=== PATIENT | female | born 1995 | race Caucasian/White ===

== ENCOUNTER 2023-08-05 19:02 | Outpatient (REF) | payer OTHER, SELFPAY ==
[2023-08-09 19:07] LABS: Age Gdln ACOG Testing Note (.); HPV Aptima Negative (Negative); IGP, Aptima HPV, rfx 16/18,45 Note (.)
== END 2023-08-05 19:03 | disposition home or self-care (01) ==
LOC: LAB 19:02
PROVIDERS: Visit Provider Physician Assistant
DX: Z01.419 Encounter for gynecological examination (general) (routine) without abnormal findings (principal)
CPT/HCPCS: 87624; G0145

== ENCOUNTER 2023-08-19 10:03 | Outpatient (OUT) | payer OTHER, SELFPAY ==
--- NOTE | 2023-08-19 10:05 | MM_ITS ---
Patient Name: VJ ACEVES MR#: [id number] : 1995 Exam Date: 08/19/2023 Ordering Doctor: KIP Christiansen . RADIOLOGY REPORT PROCEDURE: MM TOMOSYNTHESIS DIAGNOSTIC BI, 08/19/2023, 10:04 US BREAST BI LIMITED, 08/19/2023, 10:46 COMPARISON: None. INDICATIONS: Calculator Name NCI Breast Cancer Risk Assessment Tool 5 Year Breast Cancer Risk Not Reported. Lifetime Breast Cancer Risk Not Reported. Personal Breast Cancer No Personal Ovarian Cancer No Treatments None Family Cancers None LOCATION: [facility] BREAST COMPOSITION: Heterogeneously dense,which may obscure small masses. FINDINGS: DIAGNOSTIC CATEGORY 2--BENIGN FINDING: Standard and spot compression views. Scattered benign-appearing calcifications are present. Scattered benign-appearing lymph nodes are present. RIGHT BREAST: [place] marker upper outer quadrant axillary tail. No mammographic or ultrasound abnormality. LEFT BREAST: Area of focal density on tomographic images only lower outer quadrant, anterior breast measuring 8.6 x 4.6 mm. Ultrasound demonstrates at the 5 o'clock position 4.4 cm from the nipple a 9.0 x 4.3 x 4.9 cm area of anechoic echogenicity with some low level echoes. No internal color flow. A cyst with minimal debris is favored. RECOMMENDATIONS: CLINICAL EVALUATION. PLEASE NOTE: A NORMAL MAMMOGRAM DOES NOT EXCLUDE THE POSSIBILITY OF BREAST CANCER. A CLINICALLY SUSPICIOUS PALPABLE LUMP SHOULD BE BIOPSIED. Dictated by: Lv Espinosa MD on 08/19/2023 at 13:34 Approved by: Lv Espinosa MD on 08/19/2023 at 13:38
== END 2023-08-19 10:04 | disposition home or self-care (01) ==
LOC: MAMMO 10:03
PROVIDERS: Visit Provider Physician Assistant
DX: N64.4 Mastodynia (principal); N63.11 Unspecified lump in the right breast, upper outer quadrant
CPT/HCPCS: 76642; 77066; G0279

== ENCOUNTER 2023-11-06 13:10 | Outpatient (OUT) | payer OTHER, SELFPAY ==
--- NOTE | 2023-11-06 13:12 | US_ITS ---
[place] [id number] Patient Name: VJ ACEVES MRN: [id number] date: 1995 Sex: F Assigned Patient Location: [facility] Current Patient Location: [facility] Accession/Order Number: [id number] Exam Date: 11/06/2023 13:12 Report Date: 11/06/2023 14:01 At the request of: DAYNE DAMON Procedure: US OB transvaginal EXAMINATION: US OB transvaginal HISTORY: MISSED MENSES COMPARISON: No relevant comparison available. FINDINGS: GESTATIONAL SAC: Present and normal appearing. YOLK SAC: Present and normal appearing. POLE: Present and normal appearing. CARDIAC: Present. UTERUS: Normal size and appearance. OVARIES: Right: Normal. Left: Normal. CERVIX: 3.6 cm in length and closed. CUL-DE-SAC: Normal. OTHER: None. AGE BY LMP: 8 weeks 4 days MARYAM BY LMP: 06/13/2024 AGE BY US CRL: 7 weeks 1 day MARYAM BY US CRL: 06/23/2024 US/US OB transvaginal IMPRESSION: 1. Single live intrauterine . Electronically authenticated by: LUZMA TRIPP Date: 11/06/2023 14:01
== END 2023-11-06 13:11 | disposition home or self-care (01) ==
LOC: NOMS 13:10
PROVIDERS: Visit Provider Obstetrics & Gynecology
DX: Z34.91 Encounter for supervision of normal pregnancy, unspecified, first trimester (principal); Z3A.00 Weeks of gestation of pregnancy not specified; N92.6 Irregular menstruation, unspecified
CPT/HCPCS: 76817

== ENCOUNTER 2023-12-05 11:21 | Outpatient (OUT) | payer OTHER, SELFPAY ==
[2023-12-05 11:48] LABS: Basophils Percent Auto 0.6 % (0.2-2.0); Eosinophils Percent Auto 0.6 % (0.9-7.0); Hematocrit 40.2 % (36.0-48.0); Hemoglobin 13.2 g/dL (12.0-16.0); Immature Granulocytes Abs Auto 0.03 10^3/uL (0.00-0.03); Immature Granulocytes Pct Auto 0.4 % (0.0-0.5); Lymphocytes Absolute Auto 1.6 10^3/uL (1.2-3.8); Lymphocytes Percent Auto 22.2 % (20.5-60.0); Mean Corpuscular HGB Conc 32.8 g/dL (29.9-35.2); Mean Corpuscular Hemoglobin 30.4 pg (26.7-34.0); Mean Corpuscular Volume 92.6 fL (81.0-99.0); Mean Platelet Volume 11.2 fL (9.5-13.5); Monocytes Absolute Auto 0.4 10^3/uL (0.3-0.8); Monocytes Percent Auto 5.8 % (1.7-12.0); Neutrophils Absolute Auto 4.9 10^3/uL (1.4-6.5); Neutrophils Percent Auto 70.4 % (43.0-75.0); Platelet Count 197 10^3/uL (150-450); Red Blood Count 4.34 10^6/uL (4.20-5.40); Red Cell Distribution Width 12.5 % (11.0-15.0)
[2023-12-05 11:58] LABS: Estimated Average Glucose 100 mg/dL; Glycohemoglobin A1C 5.1 % (4.5-6.2)
[2023-12-06 06:09] LABS: HBsAg Screen Negative (Negative); HCV Ab Non Reactive (Non Reactive); HIV Ab/p24 Ag Screen Non Reactive (Non Reactive); Rubella Antibodies, IgG <0.90 index (Immune >0.99)
[2023-12-06 12:08] LABS: Rapid Plasma Reagin, Quant Non Reactive titer (NonRea<1:1)
== END 2023-12-05 11:22 | disposition home or self-care (01) ==
LOC: LAB 11:21
PROVIDERS: Visit Provider Obstetrics & Gynecology
DX: N92.6 Irregular menstruation, unspecified (principal); Z36.0 Encounter for antenatal screening for chromosomal anomalies
CPT/HCPCS: 36415; 83036; 85025; 86592; 86762; 86803; 86850; 86900; 86901; 87086; 87340; 87389

== ENCOUNTER 2024-01-07 10:22 | Outpatient (OUT) | payer OTHER, SELFPAY ==
--- OUTSIDE RECORDS SUMMARY | 2024-01-07 10:45 | XMS_ITS | CCD ---
Author Organization [facility] Care Team Providers Care Order Filler Name Role Phone REQUEST, DR NONE LISTED Primary Care Unavaila fox DAMON, DR OSCAR Consulting Unavailable DR DAYNE DAMON Attending Unavailable NELSON, DR OSCAR Admitting Unavailable Agueda Nazia Unavailable DAYNE DAMON Attending Unavailable FRANKIE BECKER Attending Unavailable Medications Current Medications Medication Drug Class(es) Dates Sig (Normalized) Sig (Original) amoxicillin 500 mg oral capsule (1 source) Penicillin-class Antibacterial Start: 07-11-2023 take 1 capsule by mouth every eight hours Amoxicillin 500 MG 1 capsule Orally tid for 10 day(s) Jul, Active metFORMIN (2 sources) Biguanide Start: 07-03-2022 metFORMIN HCl Jul, Active venlafaxine (2 sources) Serotonin and Norepinephrine Reuptake Inhibitor Start: 07-03-2022 Venlafaxine HCl Jul, Active Completed/Discontinued Medications Medication Drug Class(es) Dates Sig (Normalized) Sig (Original) [id number] 200 actuat albuterol 0.09 mg/actuat metered dose inhaler (2 sources) beta2-Adrenergic Agonist Start: 07-03-2022 take 2 puff(s) by inhalation four times daily as needed Albuterol Sulfate HFA 108 (90 Base) MCG/ACT 2 puffs Inhalation 4 times a day prn Jul, Not-Taking azithromycin 250 mg oral tablet (2 sources) Macrolide Antimicrobial Start: 07-03-2022 Azithromycin 250 MG 2 tablet on the first day, then 1 tablet daily for 4 days Orally Once a day for 5 day(s) Jul, Not-Taking predniSONE 20 mg oral tablet (2 sources) Start: 07-03-2022 take 1 tablet by mouth every twelve hours predniSONE 20 MG 1 tablet Orally 2 times a day for 5 day(s) Jul, Not-Taking Problems Active Problems Problem Classification Problem Date Documented Date Episodic/Chronic Acute bronchitis (1 source) Acute bronchitis due to respiratory syncytial virus Episodic Immunizations and screening for infectious disease (1 source) Encounter for screening for human papillomavirus (HPV); Translations: [ENC SCREENING HUMAN PAPILLOMAVIRUS] Onset: 05-09-2022 Episodic Other lower respiratory disease (2 sources) Cough; Translations: [Cough] Episodic Other screening for suspected conditions (not mental disorders or infectious disease) (4 sources) Encounter for screening for malignant neoplasm of cervix; Translations: [ENC SCREENING MALIG NEOPLASM CERV] Onset: 05-07-2022 Episodic Otitis media and related conditions (1 source) Otitis media, unspecified, right ear Episodic Residual codes; unclassified (2 sources) Procedure related finding; Translations: [Encounter for cosmetic surgery] Episodic Past or Other Problems Problem Classification Problem Date Documented Da te Episodic/Chronic Unclassified (1 source) Cough R05.9 Results Test Name Value Interpretation Reference Range Facility COVID/FLU/RSV RT-PCRon 07-03 SARS-CoV-2 (COVID-19) RNA SHEKHAR+probe Ql (Unsp spec) Negative [facility] Other COVID/FLU/RSV RT-PCR Negative [facility] Other COVID/FLU/RSV RT-PCR Positive [facility] Other PAP ACOG PANEL 2: 21 to 29on 05-10-2022 . . [facility] Comment on above: Performed By: #### [id number] #### [facility] [address] [address] [address] Stewart Espinal Age Gdln ACOG Testing 21-29 Normal [facility] Comment on above: Performed By: #### [id number] #### [facility] [address] [address] [address] Stewart Espinal DIAGNOSIS: Comment [facility] Comment on above: Result Comment: NEGA TIVE FOR INTRAEPITHELIAL LESION OR MALIGNANCY. Performed By: #### [id number] #### [facility] [address] [address] [address] Stewart Espinal Methodology: Comment [facility] Comment on above: Result Comment: This liquid based ThinPrep(R) pap test was screened with the use of an image guided system. Performed By: #### [id number] #### [facility] [address] [place] [address] Dr. Stewart Espinal Note: Comment Normal [facility] Comment on above: Result Comment: The Pap smear is a screening test designed to aid in the detection of premalignant and malignant conditions of the uterine cervix. It is not a diagnostic procedure and should not be used as the sole means of detecting cervical cancer. Both false-positive and false-negative reports do occur. . Performed By: #### [id number] #### [facility] [address] [place] [address] Dr. Stewart Espinal Performed by: Comment Normal [facility] Comment on above: Result Comment: Amanda Lozano, Hog Scalder (ASCP) Performed By: #### [id number] #### [facility] [address] [place] [address] Dr. Stewart Espinal Reflex Criteria: Comment Normal [facility] Comment on above: Result Comment: The HPV DNA reflex criteria were not met with this specimen result therefore, no HPV testing was performed. . Performed By: #### [id number] #### [facility] [address] [place] [address] Dr. Stewart Espinal Specimen adequacy: Comment [facility] Comment on above: Result Comment: Sati sfactory for evaluation. Endocervical and/or squamous metaplastic cells (endocervical component) are present. Performed By: #### [id number] #### [facility] [address] [place] [address] Dr. Stewart Espinal Lab Reportson 08-07-2020 Lab Reports [id number] 0CD:127 Normal [facility] Provider Letter FTMCon 08-07 Provider Letter FT Iggy Pollack MD [address] [place] [phone] Re: TONNY ACEVES Date of : 1995 Thank you for your referral of Tonny Aceves who was seen on consultation on August 02, 2020, for Left breast abscess. I have enclosed my consultation notes for your review. I will happy to follow Tonny should her symptoms persist. Sincerely, Ino Toledo MD General Surgery Normal [facility] Lab Reportson 08-04-2020 Lab Reports [id number] 0CD:127 Normal [facility] Ambulatory Clinical Summaryo n 08-02-2020 Ambulatory Clinical Summary {[id number]}CD:[id number] Normal [facility] General Surgery Office/Clini c Noteon 08-02-2020 General Surgery Office/Clinic Note Chief Complaint breast abscess HPI Staff 1 year old female presents on consultation from Dr. Pollack for left breast abscess. Started with redness and warmth started roughly one week ago. Started unknown ATB on Friday without improved. Today area opened and drained green, non-odorous material. Has resolving infection of right breast. History of Present Illness 25 yo female, 5 weeks ; was breast feeding, stopped due to infections; but developed mastitis and right breast abscess 2 weeks ago, treated with Augmentin, also some mild swelling, pain under left breast; 1 week ago, after she was off the antibiotics, left breast began swelling, was red and painful, unable to be evaluated until Friday, placed on Ciprofloxacin; had spontaneous drainage this morning, continued pain; no fevers; only taking Ibuprofen for pain and it is not helping. Review of Systems PHQ Score Initial Depression Screen Score: 0 ROS - Provider Constitutional: no fever, no sweats, no weight loss. Eyes: no glasses, no blurred vision, no visual loss. ENMT: no dentures, no hoarseness, no swallowing difficulties, no hearing loss, no ear infection(s), no nose bleeds. Cardiovascular: normal blood pressure, no chest pain, regular heartbeat, no heart murmur. Respiratory: no shortness of breath, no cough, no asthma, no wheezing. Gastrointestinal: no nausea, no vomiting, no diarrhea, no constipation, no blood in stool, no change in bowel habits, no abdominal pain, no hepatitis. Genitourinary: no kidney stones, no urine infection, no dysuria. Musculoskeletal: no pain, no weakness. Skin: no changing moles, no rash, yes skin lumps. Neurologic: no seizures, no epilepsy, no headache. Psychiatric: no emotional or psychiatric problem. Heme/Lymph: no bleeding problems, no anemia, no blood clots, no transfusions. Allergy/Immunologic: no swollen lymph nodes/glands, no IV drug abuse. Other: Additional ROS info: Except as noted in the above Review of Systems and in the History of Present Illness, all other systems have been reviewed and are negative or noncontributory. Physical Exam Vitals & Measurements T: 37.9 ?C (Tympanic) HR: 120(Peripheral) RR: 16 BP: 126/82 HT: 162.5 cm HT: 162.5 cm WT: 83.4 kg WT: 83.4 kg BMI: 31.58 HEENT: normal conjunctiva, sclera clear, no scleral icterus, EOM intact, PERRLA. oral mucosa moist without lesions Neck: trachea midline , no mass, symmetric, no thyromegaly or nodules. no adenopathy Respiratory: lungs CTA, respirations non labored. Cardiovascular: regular rate and rhythm, no murmur, , no pedal edema or varicosities. Chest (Breasts): right breast with 1.5 cm open area from old abscess, no erthema or drainage; right breast with erythema; large left inferior abscess with skin peeling, 2 mm open area with thick purulent drainage; tender. Musculoskeletal: normalgait, digits and nails without infection, nodes, cyanosis, clubbing. Skin: no rashes, no lesions, no ulcers, no subcutaneous nodules, induration. Psychiatric/Neuro: oriented to time, place, person, judgement normal, affect anxious, insight intact, no focal deficits. Tests: review of old records completed, Discussed surgical options, risks, and possible complications with patient. Procedure left breast prepped and draped; anesthetized with 10 ml of 1% lidocaine with epinephrine; area of spontaneous drainage enlarged to 1 cm with # 11 blade; large amount of purulent material drained; cx obtained. ebl < 1ml. Assessment/Plan 1. Abscess of left breast associated with (O91.13: Abscess of breast associated with ) area drained/cultured under local anesthesia; sterile dressing applied; add Bactrim, continue Cipro; daily dressing changes; massage area in shower to get remaining purulent material out; [place] and Ibuprofen for pain; follow up Friday for wound check; call sooner if problems/questions. Ordered: acetaminophen-hydrocod one, 1 tab(s), Oral, q4hr for pain, 18 tab(s), Refill(s) 0, take with food or milk, [id number], 162.5, cm, 08/02/20 14:45:00 EST, Height/Length Dosing, 83.4, kg, 08/02/20 14:45:00 EST, Weight Dosing sulfamethoxazole-trime thoprim, 1 tab(s), Oral, BID for 10 day(s), 20 tab(s), Refill(s) 0, [id number], 162.5, cm, 08/02/20 14:45:00 EST, Height/Length Dosing, 83.4, kg, 08/02/20 14:45:00 EST, Weight Dosing I&D abscess simple single [id number] Wound Culture Acute postoperative pain (G89.18: Other acute postprocedural pain) see # 1 Ordered: acetaminophen-hydrocod one, 1 tab(s), Oral, q4hr for pain, 18 tab(s), Refill(s) 0, take with food or milk, [id number], 162.5, cm, 08/02/20 14:45:00 EST, Height/Length Dosing, 83.4, kg, 08/02/20 14:45:00 EST, Weight Dosing Follow-up No qualifying data available Problem List/Past Medical History Ongoing Abscess of left breast associated with Historical No qualifying data Procedure/Surgical History Tonsillectomy. Medications Bacitracin top 500 units/g Oint TUBE (15 gram) Bactrim DS 800 mg-160 mg Tab, 1 tab(s), Oral, BID ciprofloxacin 500 mg Tab [place] 325 mg-5 mg oral tablet, 1 tab(s), Oral, q4hr, PRN Allergies No Known Allergies No Known Medication Allergies Social History Alcohol - Denies Alcohol Use, 08/02/2020 Substance Abuse - Denies Substance Abuse, 08/02/2020 Tobacco Former smoker, quit more than 30 days ago Tobacco Use:., 08/02/2020 Family History Family history is negative Normal [facility] Comment on above: Result Comment: Elec tronically Signed By: TONJA CUBA, Ino Atkinson\Date and Time Signed: 08/02/20 15:43 EST Patient Educationon 08-02-20 20 Patient Education Family Medicine Abscess An abscess is an infected area that contains a collection of pus and debris.?It can occur in almost any part of the body. An abscess is also known as a furuncle or boil. CAUSES An abscess occurs when tissue gets infected. This can occur from blockage of oil or sweat glands, infection of hair follicles, or a minor injury to the skin. As the body tries to fight the infection, pus collects in the area and creates pressure under the skin. This pressure causes pain. People with weakened immune systems have difficulty fighting infections and get certain abscesses more often. SYMPTOMS Usually an abscess develops on the skin and becomes a painful mass that is red, warm, and tender. If the abscess forms under the skin, you may feel a moveable soft area under the skin. Some abscesses break open (rupture ) on their own, but most will continue to get worse without care. The infection can spread deeper into the body and eventually into the bloodstream, causing you to feel ill. DIAGNOSIS Your caregiver will take your medical history and perform a physical exam. A sample of fluid may also be taken from the abscess to determine what is causing your infection. TREATMENT Your caregiver may prescribe antibiotic medicines to fight the infection. However, taking antibiotics alone usually does not cure an abscess. Your caregiver may need to make a small cut (incision ) in the abscess to drain the pus. In some cases, gauze is packed into the abscess to reduce pain and to continue draining the area. HOME CARE INSTRUCTIONS ? Only take ivcv-hos-hpwneun or prescription medicines for pain, discomfort, or fever as directed by your caregiver. ? If you were prescribed antibiotics, take them as directed. Finish them even if you start to feel better. ? If gauze is used, follow your caregiver's directions for changing the gauze. ? To avoid spreading the infection: ? Keep your draining abscess covered with a bandage. ? Wash your hands well. ? Do not share personal care items, towels, or whirlpools with others. ? Avoid skin contact with others. ? Keep your skin and clothes clean around the abscess. ? Keep all follow-up appointments as directed by your caregiver. SEEK MEDICAL CARE IF: ? You have increased pain, swelling, redness, fluid drainage, or bleeding. ? You have muscle aches, chills, or a general ill feeling. ? You have a fever. MAKE SURE YOU: ? Understand these instructions. ? Will watch your condition. ? Will get help right away if you are not doing well or get worse. Document Released: 05/28/2006 Document Revised: 02/16/2013 Document Reviewed: 10/30/2012 ExitCare? Patient Information ?2013 [employer]. [facility] Vital Signs Date Time Vital Sign Value Performing Clinician Facility 07-11-2023 11:20-0500 Body height 165.1 cm Nazia Agueda Other [facility] Other 07-11-2023 11:20-0500 Body mass index (BMI) [Ratio] 34.88 kg/m2 Nazia Agueda Other [facility] Other 07-11-2023 11:20-0500 Body temperature 98.6 [degF] Nazia Agueda Other [facility] Other 07-11-2023 11:20-0500 Body weight 95.07 kg Nazia Agueda Other [facility] Other 07-11-2023 11:20-0500 Diastolic blood pressure 71 mm[Hg] Nazia Agueda Other [facility] Other 07-11-2023 11:20-0500 Respiratory rate 18 /min Nazia Agueda Other [facility] Other 07-11-2023 11:20-0500 SaO2% (BldA) [Mass fraction] 99 % Nazia Agueda Other [facility] Other 07-11-2023 11:20-0500 Systolic blood pressure 97 mm[Hg] Nazia Romeo Other [facility] Other 07-03-2022 13:25-0400 Body height 165.1 cm Nazia Romeo Other [facility] Other 07-03-2022 13:25-0400 Body mass index (BMI) [Ratio] 31.61 kg/m2 Nazia Romeo Other [facility] Other 07-03-2022 13:25-0400 Body temperature 100.4 [degF] Nazia Romeo Other [facility] Other 07-03-2022 13:25-0400 Body weight 86.18 kg Nazia Romeo Other [facility] Other 07-03-2022 13:25-0400 Respiratory rate 18 /min Nazia Romeo Other [facility] Other 07-03-2022 13:25-0400 SaO2% (BldA) [Mass fraction] 96 % Nazia Romeo Other [facility] Other Encounters Encounter Date Encounter Type Care Provider Facility Start: 12-09-2023 End: 12-09-2023 ambulatory DAYNE NELSON Not Available Start: 11-06-2023 End: 11-06-2023 ambulatory DAYNE NELSON Not Available Start: 08-05-2023 End: 08-05-2023 ambulatory FRANKIE EUGENIO Not Available Start: 07-11-2023 End: 07-11-2023 ambulatory Nazia Chimond Other [facility] Other Start: 07-11-2023 Office outpatient vi sit 15 minutes Nazia Agueda [facility] Start: 07-03-2022 End: 07-03-2022 ambulatory Nazia Romeo Other [facility] Other Start: 07-03-2022 Office outpatient vi sit 15 minutes Nazia Agueda [facility] Start: 05-07-2022 End: 05-07-[address] NONE LISTED REQUEST Facility: Payers Date Payer Category Payer Unknown [id number] 1995 Unknown [id number] 1995 Unknown [id number] 1995 Unknown [id number] 1961 Unknown [id number] Social History Date Type Detail Facility Unknown if ever smoked [facility] Other Sex Assigned At Sex Assigned At Bir th [facility] Other Evaluation note 07-11-2023 Note Date & Type Note Facility 07-11-2023 Evaluation note Encounter Date Diagnosis Assessment Notes Jul, Right otitis media, unspecified otitis media type (ICD-10 - H66.91) Middle ear infection: adult home care material was printed Drink plenty fluids, get plenty of rest. Take the amoxicillin as prescribed until gone. Take Tylenol or Motrin as needed for aches pains or fevers. Follow-up with your family physician if no improvement in 2 to 3 days. May return to work on Friday [facility] Other Evaluation note 07-03-2022 Note Date & Type Note Facility 07-03-2022 Evaluation note Encounter Date Diagnosis Assessment Notes Jul, Cough (ICD-10 - R05.9) Jul, RSV bronchitis (ICD-10 - J20.5) Acute bronchitis home care material was printed Drink plenty fluids, get plenty of rest. Take the azithromycin and prednisone as prescribed until gone. Use the albuterol inhaler as prescribed for cough or shortness of breath. Take Tylenol or Motrin for aches pains or fevers. Follow-up with your family physician if no improvement in 2 to 3 days. [facility] Other History general Narrative - Reported Note Date & Type Note Facility History general Narrative - Reported Type Surgical History tonsillectomy Surgical History wisdom teeth Hospitalization History see above [facility] Other Summary Purpose Family History No Family History Records FoundNo Family History Records FoundNo Family History Records Found Advance Directives No Advanced Directives Records FoundNo Advanced Directives Records FoundNo Advanced Directives Records Found Additional Source Comments INFORMATION SOURCE (unrecogn ized section and content) DATE CREATED AUTHOR 08/30/2020 [place] [employer] [facility] DATE CREATED AUTHOR AUTHOR'S ORGANIZ ATION 05/11/2022 [facility] DATE CREATED AUTHOR AUTHOR'S ORGANIZ ATION 12/10/2023 [facility] EPIC REASON FOR VISIT (unrecogniz ed section and content) SORE THROAT CONGESTION COUGH CONGESTION, COUGH, BODY ACHES FOR RECORDS PERTAINING TO PATIENTS WHO ARE OR HAVE BEEN ENROLLED IN A CHEMICAL DEPENDENCY/SUBSTANCEABUSE PROGRAM, SOME INFORMATION MAY BE OMITTED. This clinical summary was aggregated from multiple sources. Caution should be exercised in using it in the provision of clinical care. This summary normalizes information from multiple sources, and as a consequence, information in this document may materially change the coding, format and clinical context of patient data. In addition, data may be omitted in some cases. CLINICAL DECISIONS SHOULD BE BASED ON THE PRIMARY CLINICAL RECORDS. [employer] provides no warranty or guarantee of the accuracy or completeness of information in this document.
[2024-01-09 02:07] LABS: AFP Value 21.8 ng/mL (.); Gestat. Age Based On Ultrasound (.); Insulin Dep Diabetes No (.); Maternal Age At EDD 30.9 yr (.); OSBR Risk 1 IN 10000 (.); Results Report (.)
== END 2024-01-07 10:23 | disposition home or self-care (01) ==
LOC: LAB 10:24
PROVIDERS: Visit Provider Obstetrics & Gynecology
DX: Z34.92 Encounter for supervision of normal pregnancy, unspecified, second trimester (principal); Z3A.16 16 weeks gestation of pregnancy
CPT/HCPCS: 36415; 82105

== ENCOUNTER 2024-02-05 08:21 | Outpatient (OUT) | payer OTHER, SELFPAY ==
--- NOTE | 2024-02-05 08:25 | US_ITS ---
[address] [address] Patient Name: VJ ACEVES MRN: [id number] date: 1995 Sex: F Assigned Patient Location: [facility] Current Patient Location: [facility] Accession/Order Number: [id number] Exam Date: 02/05/2024 08:25 Report Date: 02/05/2024 10:38 At the request of: DAYNE DAMON Procedure: US OB anatomy EXAMINATION: US OB anatomy, US OB cervical length HISTORY: ANATOMY COMPARISON: Ultrasound OB transvaginal 11/06/2023 TECHNIQUE: Transabdominal sonographic examination was performed for obstetrical and evaluation. FINDINGS: Number: 1 Heart Rate: 145.0 bpm H.B. /min Amniotic Fluid Volume: Subjectively normal Placental Location: POSTERIOR with lower margin 2.6 cm from os Cervix Length: 4.4 cm, closed. ANATOMY: Normal Structures -cerebellum, choroid plexus, cisterna magna, lateral cerebral ventricles, orbits, midline falx, hard palate, four-chamber heart, RVOT, LVOT, stomach, kidneys, bladder, umbilical cord insertion into abdomen, three-vessel cord, cervical spine, thoracic spine, lumbar spine, sacral spine, right upper extremity, left upper extremity, right lower extremity, left lower extremity. SUBOPTIMALLY SEEN: None ABNORMALITIES: None BIOMETRY: BPD: 4.5 cm 19 weeks 5 days HC: 17.8 cm 20 weeks 2 days AC: 15.4 cm 20 weeks 4 days FL: 3.5 cm 21 weeks 1 days EFW:372.6 grams; 78% FL/AC: 22.8 FL/BPD: 77.7 HC/AC: 1.2 GESTATIONAL AGE: Age by EDC: 20 weeks 1 days MARYAM by EDC: 06/23/2024 Age by current US: 20 weeks 3 days MARYAM by current US: 06/21/2024 US/US OB anatomy IMPRESSION: 1. Single live intrauterine with growth detailed above. Electronically authenticated by: LUZMA TRIPP Date: 02/05/2024 10:38
--- NOTE | 2024-02-05 08:25 | US_ITS ---
[address] [address] Patient Name: VJ ACEVES MRN: [id number] date: 1995 Sex: F Assigned Patient Location: [facility] Current Patient Location: [facility] Accession/Order Number: [id number] Exam Date: 02/05/2024 08:25 Report Date: 02/05/2024 10:38 At the request of: DAYNE DAMON Procedure: US OB cervical length EXAMINATION: US OB anatomy, US OB cervical length HISTORY: ANATOMY COMPARISON: Ultrasound OB transvaginal 11/06/2023 TECHNIQUE: Transabdominal sonographic examination was performed for obstetrical and evaluation. FINDINGS: Number: 1 Heart Rate: 145.0 bpm H.B. /min Amniotic Fluid Volume: Subjectively normal Placental Location: POSTERIOR with lower margin 2.6 cm from os Cervix Length: 4.4 cm, closed. ANATOMY: Normal Structures -cerebellum, choroid plexus, cisterna magna, lateral cerebral ventricles, orbits, midline falx, hard palate, four-chamber heart, RVOT, LVOT, stomach, kidneys, bladder, umbilical cord insertion into abdomen, three-vessel cord, cervical spine, thoracic spine, lumbar spine, sacral spine, right upper extremity, left upper extremity, right lower extremity, left lower extremity. SUBOPTIMALLY SEEN: None ABNORMALITIES: None BIOMETRY: BPD: 4.5 cm 19 weeks 5 days HC: 17.8 cm 20 weeks 2 days AC: 15.4 cm 20 weeks 4 days FL: 3.5 cm 21 weeks 1 days EFW:372.6 grams; 78% FL/AC: 22.8 FL/BPD: 77.7 HC/AC: 1.2 GESTATIONAL AGE: Age by EDC: 20 weeks 1 days MARYAM by EDC: 06/23/2024 Age by current US: 20 weeks 3 days MARYAM by current US: 06/21/2024 US/US OB cervical length IMPRESSION: 1. Single live intrauterine with growth detailed above. Electronically authenticated by: LUZMA TRIPP Date: 02/05/2024 10:38
--- OUTSIDE RECORDS SUMMARY | 2024-02-05 08:26 | XMS_ITS ---
Patient Summarization (C-CDA 2.1 CCD) Created on: February 05, 2024 TONNY ACEVES : 1995 Sex: Female Author Organization Sample organization Care Team Providers Care Medical Records Analyst Name Role Phone REQUEST, DR NONE LISTED Primary Care Unavaila fox DAMON, DR OSCAR Consulting Unavailable NELSON, DR OSCAR Attending Unavailable NELSON, DR OSCAR Admitting Nazia Ferguson Unavailable DAYNE DAMON Attending Unavailable FRANKIE BECKER Attending Unavailable FRANKIE BECKER Attending Unavailable Encounters Encounter Date Encounter Type Care Provider Facility Start: 01-07-2024 End: 01-07-2024 ambulatory FRANKIE BECKER Not Available Start: 12-09-2023 End: 12-09-2023 ambulatory DAYNE NELSON Not Available Start: 11-06-2023 End: 11-06-2023 ambulatory DAYNE NELSON Not Available Start: 08-05-2023 End: 08-05-2023 ambulatory FRANKIE BECKER Not Available Start: 07-11-2023 End: 07-11-2023 ambulatory Nazia Romeo Other [employer] Other Start: 07-11-2023 Office outpatient vi sit 15 minutes Nazia Romeo [facility] Start: 07-03-2022 End: 07-03-2022 ambulatory Nazia Romeo Other [employer] Other Start: 07-03-2022 Office outpatient vi sit 15 minutes Nazia Romeo [facility] Start: 05-07-2022 End: 05-07-[address] TORO LISTED REQUEST Facility: Medications Current Medications Medication Drug Class(es) Dates [...] Drug Class(es) Dates Sig (Normalized) Sig (Original) [id number] 200 actuat albuterol 0.09 mg/actuat metered dose [...] a day for 5 day(s) Jul, Not-Taking Payers Date Payer Category Payer Unknown [id number] 2.16.84 [id number] 1995 Unknown [id number] 2.16.84 [id number] 1995 Unknown [id number] 2.16.84 [id number] 1993 Unknown [id number] 2.16.84 [id number] 1993 Unknown [id number] 1959 Unknown [id number] Problems Active Problems Problem Classification Problem Date [...] (COVID-19) RNA SHEKHAR+probe Ql (Unsp spec) Negative [employer] [facility] [employer] Other COVID/FLU/RSV RT-PCR Negative [employer] [facility] [employer] Other COVID/FLU/RSV RT-PCR Positive [employer] [facility] [employer] Other PAP ACOG PANEL 2: 21 to 29on 05-10-[address] [facility] Comment on above: Performed By: #### [id number] #### [facility] [address] [place] [address] Dr. Stewart Espinal Age Gdln ACOG Testing 21-29 [facility] Comment on above: Performed By: #### [id number] #### [facility] [address] [address] [address] Stewart Espinal DIAGNOSIS: Comment [facility] Comment on above: Result Comment: NEGA TIVE FOR INTRAEPITHELIAL LESION OR MALIGNANCY. Performed By: #### [id number] #### [facility] [address] [address] [address] Stewart Espinal Methodology: Comment [facility] Comment on above: Result Comment: This liquid based ThinPrep(R) pap test was screened with the use of an image guided system. Performed By: #### 4 [id number] #### [facility] [address] [place] [address] Dr. Stewart Espinal Note: Comment Normal [facility] Comment on above: Result Comment: The Pap smear is a screening test designed to aid in the detection of premalignant and malignant conditions of the uterine cervix. It is not a diagnostic procedure and should not be used as the sole means of detecting cervical cancer. Both false-positive and false-negative reports do occur. . Performed By: #### [id number] #### [facility] [address] [place] [address] Dr. Stewart Espinal Performed by: Comment Normal [facility] Comment on above: Result Comment: Amanda Lozano, Fitness Floor Attendant (ASCP) Performed By: #### 4 [id number] #### [facility] [address] [place] [address] Dr. Stewart Espinal Reflex Criteria: Comment Normal [facility] Comment on above: Result Comment: The HPV DNA reflex criteria were not met with this specimen result therefore, no HPV testing was performed. . Performed By: #### [id number] #### [facility] [address] [place] [address] Dr. Stewart Espinal Specimen adequacy: Comment [facility] Comment on above: Result Comment: Sati sfactory for evaluation. Endocervical and/or squamous metaplastic cells (endocervical component) are present. Performed By: #### 4 [id number] #### [facility] [address] [place] [address] Dr. Stewart Espinal Lab Reportson 08-07-2020 Lab Reports [id number] 0CD:127 Normal [facility] Provider Letter FTon 08-07 Provider Letter [facility] Iggy Pollack MD [address] [place] [phone] Re: TONNY ACEVES Date of : 1995 Thank you for your referral of Tonny Aceves who was seen on consultation on August 02, 2020, for Left breast abscess. I have enclosed my consultation notes for your review. I will happy to follow Tonny should her symptoms persist. Sincerely, Ino Toledo MD General Surgery Normal [facility] Lab Reportson 08-04-2020 Lab Reports [id number] 0CD:127 Normal [facility] Ambulatory Clinical Summaryo n 08-02-2020 Ambulatory Clinical Summary {[id number] Normal [facility] General Surgery Office/Clini c Noteon 08-02-2020 General [...] shower to get remaining purulent material out; [place] and Ibuprofen for pain; follow up Friday [...] EST, Weight Dosing I&D abscess simple single 42823 Wound Culture Acute postoperative pain (G89.18: Other [...] tab(s), Oral, BID ciprofloxacin 500 mg Tab [place] 325 mg-5 mg oral tablet, 1 tab(s), Oral, q4hr, PRN Allergies No Known Allergies No Known Medication Allergies Social History Alcohol - Denies Alcohol Use, 08/02/2020 Substance Abuse - Denies Substance Abuse, 08/02/2020 Tobacco Former smoker, quit more than 30 days ago Tobacco Use:., 08/02/2020 Family History Family history is negative Normal [facility] Comment on above: Result Comment: Elec tronically [...] area. HOME CARE INSTRUCTIONS ? Only take deuk-oeq-rstguub or prescription medicines for pain, discomfort, or [...] Document Reviewed: 10/30/2012 ExitCare? Patient Information ?2013 [employer] [facility]. [facility] Social History Date Type Detail Facility Unknown if ever smoked [employer] Other Sex Assigned At Sex Assigned At Bir th [employer] Other Vital Signs Date Time Vital Sign Value Performing Clinician Facility 07-11-2023 11:20-0500 Body height 165.1 cm Nazia Romeo Other [employer] Other 07-11-2023 11:20-0500 Body mass index (BMI) [Ratio] 34.88 kg/m2 Nazia Agueda Other [employer] Other 07-11-2023 11:20-0500 Body temperature 98.6 [degF] Nazia Agueda Other [employer] Other 07-11-2023 11:20-0500 Body weight 95.07 kg Nazia Agueda Other [employer] Other 07-11-2023 11:20-0500 Diastolic blood pressure 71 mm[Hg] Nazia Romeo Other [employer] Other 07-11-2023 11:20-0500 Respiratory rate 18 /min Nazia Romeo Other [employer] Other 07-11-2023 11:20-0500 SaO2% (BldA) [Mass fraction] 99 % Nazia Romeo Other [employer] Other 07-11-2023 11:20-0500 Systolic blood pressure 97 mm[Hg] Nazia Romeo Other [employer] Other 07-03-2022 13:25-0400 Body height 165.1 cm Nazia Romeo Other [employer] Other 07-03-2022 13:25-0400 Body mass index (BMI) [Ratio] 31.61 kg/m2 Nazia Romeo Other [employer] Other 07-03-2022 13:25-0400 Body temperature 100.4 [degF] Nazia Romeo Other [employer] Other 07-03-2022 13:25-0400 Body weight 86.18 kg Nazia Romeo Other [employer] Other 07-03-2022 13:25-0400 Respiratory rate 18 /min Nazia Romeo Other [employer] Other 07-03-2022 13:25-0400 SaO2% (BldA) [Mass fraction] 96 % Nazia Romeo Other [employer] Other Evaluation note 07-11-2023 Note Date & [...] days. May return to work on Friday [employer] Other Evaluation note 07-03-2022 Note Date & [...] no improvement in 2 to 3 days. [employer] Other History general Narrative - Reported Note Date & Type Note Facility History general Narrative - Reported Type Surgical History tonsillectomy Surgical History wisdom teeth Hospitalization History see above [employer] Other Summary Purpose Family History No Family History Records FoundNo Family History Records FoundNo Family History Records Found Advance Directives No Advanced Directives Records FoundNo Advanced Directives Records FoundNo Advanced Directives Records Found Additional Source Comments INFORMATION SOURCE (unrecogn ized section and content) DATE CREATED AUTHOR 08/30/2020 [facility] DATE CREATED AUTHOR AUTHOR'S ORGANIZ ATION 05/11/2022 [facility] DATE CREATED AUTHOR AUTHOR'S ORGANIZ ATION 01/09/2024 [facility] dical Specialists EPIC REASON FOR VISIT (unrecogniz [...] BE BASED ON THE PRIMARY CLINICAL RECORDS. [employer] [facility]. provides no warranty or guarantee of the accuracy or completeness of information in this document.
== END 2024-02-05 08:22 | disposition home or self-care (01) ==
LOC: NOMS 08:22
PROVIDERS: Visit Provider Obstetrics & Gynecology
DX: Z36.89 Encounter for other specified antenatal screening (principal); Z3A.20 20 weeks gestation of pregnancy
CPT/HCPCS: 76805; 76817

== ENCOUNTER 2024-03-23 08:15 | Outpatient (OUT) | payer OTHER, SELFPAY ==
--- OUTSIDE RECORDS SUMMARY | 2024-03-23 08:19 | XMS_ITS | CCD ---
Author Organization [facility] Care Team Providers Care Ballet Professor Name Role Phone REQUEST, DR NONE LISTED Primary Care Unavaila fox DAMON, DR OSCAR Consulting Unavailable NELSON, DR OSCAR Attending Unavailable NELSON, DR OSCAR Admitting Unavailable Nazia Romeo Unavailable DAYNE DAMON Attending Unavailable FRANKIE BECKER Attending Unavailable FRANKIE BECKER Attending Unavailable DAYNE DAMON Attending Unavailable Medications Current Medications Medication Drug [...] Drug Class(es) Dates Sig (Normalized) Sig (Original) [id number] 200 actuat albuterol 0.09 mg/actuat metered dose [...] (COVID-19) RNA SHEKHAR+probe Ql (Unsp spec) Negative [employer] Other COVID/FLU/RSV RT-PCR Negative [employer] Other COVID/FLU/RSV RT-PCR Positive [employer] Other PAP ACOG PANEL 2: 21 to 29on 05-10-2022 . . Normal [facility] Comment on above: Performed By: #### [id number] #### [facility] [address] [address] [address] Stewart Espinal Age Gdln ACOG Testing - [facility] Comment on above: Performed By: #### 4 [id number] #### [facility] [address] [address] [address] Stewart Espinal DIAGNOSIS: Comment [facility] Comment on above: Result Comment: NEGA TIVE FOR INTRAEPITHELIAL LESION OR MALIGNANCY. Performed By: #### 4 [id number] #### [facility] [address] [place] [address] Dr. Stewart Espinal Methodology: Comment Normal [facility] Comment on above: Result Comment: This liquid based ThinPrep(R) pap test was screened with the use of an image guided system. Performed By: #### 4 [id number] #### [facility] [address] [place] [address] Dr. Stewart Espinal Note: Comment Normal [facility] Comment [...] do occur. . Performed By: #### [id number] #### [facility] [address] [place] [address] Dr. Stewart Espinal Performed by: Comment Normal [facility] Comment on above: Result Comment: Amanda Lozano, Agricultural Produce Packer (ASCP) Performed By: #### 4 [id number] #### [facility] [address] [place] [address] Dr. Stewart Espinal Reflex Criteria: Comment Normal [facility] Comment on above: Result Comment: The HPV DNA reflex criteria were not met with this specimen result therefore, no HPV testing was performed. . Performed By: #### 4 [id number] #### [facility] [address] [place] [address] Dr. Stewart Espinal Specimen adequacy: Comment Normal [facility] Comment on above: Result Comment: Sati sfactory for evaluation. Endocervical and/or squamous metaplastic cells (endocervical component) are present. Performed By: #### 4 [id number] #### [facility] [address] [place] [address] Dr. Stewart Espinal Lab Reportson 08-07-2020 Lab Reports [id number] 0CD:[address] [facility] Provider Letter FTMCon 08-07 Provider Letter [facility] Iggy Pollack MD [address] [place] [phone] Re: TONNY ACEVES Date of : 1995 Thank you for your referral of Tonny Aceves who was seen on consultation on August 02, 2020, for Left breast abscess. I have enclosed my consultation notes for your review. I will happy to follow Tonny should her symptoms persist. Sincerely, Ino Toledo MD General Surgery Normal [facility] Lab Reportson 08-04-2020 Lab Reports [id number] 0CD:[address] [facility] Ambulatory Clinical Summaryo n 08-02-2020 Ambulatory Clinical Summary {[id number] Normal [facility] General Surgery Office/Clini c Noteon 08-02-2020 [...] shower to get remaining purulent material out; [place] and Ibuprofen for pain; follow up Friday [...] EST, Weight Dosing I&D abscess simple single 92515 Wound Culture Acute postoperative pain (G89.18: Other [...] tab(s), Oral, BID ciprofloxacin 500 mg Tab [place] 325 mg-5 mg oral tablet, 1 tab(s), Oral, q4hr, PRN Allergies No Known Allergies No Known Medication Allergies Social History Alcohol - Denies Alcohol Use, 08/02/2020 Substance Abuse - Denies Substance Abuse, 08/02/2020 Tobacco Former smoker, quit more than 30 days ago Tobacco Use:., 08/02/2020 Family History Family history is negative Normal [facility] Comment on above: Result Comment: Laverne anders Signed By: TONJA CUBA, Ino Vasques.nate\Date and Time Signed: 08/02/20 15:43 EST Patient [...] area. HOME CARE INSTRUCTIONS ? Only take rwlj-qww-nbotfll or prescription medicines for pain, discomfort, or [...] Document Reviewed: 10/30/2012 ExitCare? Patient Information ?2013 [employer] [facility] Vital Signs Date Time Vital Sign Value Performing Clinician Facility 07-11-2023 11:20-0500 Body height 165.1 cm Nazia Romeo Other [employer] Other 07-11-2023 11:20-0500 Body mass index (BMI) [Ratio] 34.88 kg/m2 Nazia Romeo Other [employer] Other 07-11-2023 11:20-0500 Body temperature 98.6 [degF] Nazia Romeo Other [employer] Other 07-11-2023 11:20-0500 Body weight 95.07 kg Nazia Chimond Other [employer] Other 07-11-2023 11:20-0500 Diastolic blood pressure 71 mm[Hg] Nazia Chimond Other [employer] Other 07-11-2023 11:20-0500 Respiratory rate 18 /min Nazia Chimond Other [employer] Other 07-11-2023 11:20-0500 SaO2% (BldA) [Mass fraction] 99 % Nazia Romeo Other [employer] Other 07-11-2023 11:20-0500 Systolic blood pressure 97 mm[Hg] Nazia Romeo Other [employer] Other 07-03-2022 13:25-0400 Body height 165.1 cm Nazia Romeo Other [employer] Other 07-03-2022 13:25-0400 Body mass index (BMI) [Ratio] 31.61 kg/m2 Nazia Romeo Other [employer] Other 07-03-2022 13:25-0400 Body temperature 100.4 [degF] Nazia Romeo Other [employer] Other 07-03-2022 13:25-0400 Body weight 86.18 kg Nazia Romeo Other [employer] Other 07-03-2022 13:25-0400 Respiratory rate 18 /min Nazia Romeo Other [employer] Other 07-03-2022 13:25-0400 SaO2% (BldA) [Mass fraction] 96 % Nazia Romeo Other [employer] Other Encounters Encounter Date Encounter Type Care Provider Facility Start: 02-05-2024 End: 02-05-2024 ambulatory DAYNE NELSON Not Available Start: 01-07-2024 End: 01-07-2024 ambulatory FRANKIE BECKER Not Available Start: 12-09-2023 End: 12-09-2023 ambulatory DAYNE NELSON Not Available Start: 11-06-2023 End: 11-06-2023 ambulatory DAYNE NELSON Not Available Start: 08-05-2023 End: 08-05-2023 ambulatory FRANKIE BECKER Not Available Start: 07-11-2023 End: 07-11-2023 ambulatory Nazia Agueda Other [employer] Other Start: 07-11-2023 Office outpatient vi sit 15 minutes Nazia Agueda [facility] Start: 07-03-2022 End: 07-03-2022 ambulatory Nazia Agueda Other [employer] Other Start: 07-03-2022 Office outpatient vi sit 15 minutes Nazia Agueda [facility] Start: 05-07-2022 End: 05-07-[address] NONE LISTED REQUEST Facility: Payers Date Payer Category Payer Unknown [id number] 2.16.84 [id number] 1995 Unknown [id number] 2.16.84 [id number] 1995 Unknown [id number] 2.16.84 [id number] 1993 Unknown [id number] 2.16.84 [id number] 1993 Unknown [id number] 2.16.84 [id number] 1993 Unknown [id number] 1959 Unknown [id number] Social History Date Type Detail Facility Unknown if ever smoked [employer] Other Sex Assigned At Sex Assigned At Bir th [employer] Other Evaluation note 07-11-2023 Note Date & [...] days. May return to work on Friday [employer] Other Evaluation note 07-03-2022 Note Date & [...] no improvement in 2 to 3 days. [employer] Other History general Narrative - Reported Note Date & Type Note Facility History general Narrative - Reported Type Surgical History tonsillectomy Surgical History wisdom teeth Hospitalization History see above [employer] Other Summary Purpose Family History No Family History Records FoundNo Family History Records FoundNo Family History Records Found Advance Directives No Advanced Directives Records FoundNo Advanced Directives Records FoundNo Advanced Directives Records Found Additional Source Comments INFORMATION SOURCE (unrecogn ized section and content) DATE CREATED AUTHOR 08/30/2020 [place] [facility] DATE CREATED AUTHOR AUTHOR'S ORGANIZ ATION 05/11/2022 [facility] DATE CREATED AUTHOR AUTHOR'S ORGANIZ ATION 02/06/2024 [facility] dical Specialists EPIC REASON FOR VISIT [...] BE BASED ON THE PRIMARY CLINICAL RECORDS. [facility] [facility]. provides no warranty or guarantee of the accuracy or completeness of information in this document.
[2024-03-23 09:38] LABS: Glucose 1 Hour 124 mg/dL (<130)
[2024-03-23 09:39] LABS: Basophils Percent Auto 0.3 % (0.2-2.0); Eosinophils Absolute Auto 0.1 10^3/uL (0.0-0.7); Eosinophils Percent Auto 0.8 % (0.9-7.0); Hematocrit 36.7 % (36.0-48.0); Immature Granulocytes Abs Auto 0.08 10^3/uL (0.00-0.03); Lymphocytes Absolute Auto 1.3 10^3/uL (1.2-3.8); Lymphocytes Percent Auto 17.2 % (20.5-60.0); Mean Corpuscular HGB Conc 32.7 g/dL (29.9-35.2); Mean Corpuscular Hemoglobin 30.8 pg (26.7-34.0); Mean Corpuscular Volume 94.3 fL (81.0-99.0); Mean Platelet Volume 11.1 fL (9.5-13.5); Monocytes Absolute Auto 0.5 10^3/uL (0.3-0.8); Neutrophils Absolute Auto 5.7 10^3/uL (1.4-6.5); Neutrophils Percent Auto 74.7 % (43.0-75.0); Platelet Count 164 10^3/uL (150-450); Red Blood Count 3.89 10^6/uL (4.20-5.40); Red Cell Distribution Width 13.2 % (11.0-15.0); White Blood Count 7.7 10^3/uL (4.0-11.0)
== END 2024-03-23 08:16 | disposition home or self-care (01) ==
LOC: LAB 08:16
PROVIDERS: Visit Provider Obstetrics & Gynecology
DX: Z13.1 Encounter for screening for diabetes mellitus (principal)
CPT/HCPCS: 36415; 82950; 85025

== ENCOUNTER 2024-04-13 09:59 | Outpatient (OUT) | payer OTHER, SELFPAY ==
--- NOTE | 2024-04-13 10:02 | US_ITS ---
[address] [address] Patient Name: VJ ACEVES MRN: [id number] date: 1995 Sex: F Assigned Patient Location: [facility] Current Patient Location: [facility] Accession/Order Number: [id number] Exam Date: 04/13/2024 10:02 Report Date: 04/13/2024 10:53 At the request of: FRANKIE BECKER Procedure: US OB growth EXAMINATION: US OB growth HISTORY: SIZE INCONSISTENT WITH DATES COMPARISON: No relevant comparison available. FINDINGS: Heart Rate: 121 bpm Amniotic Fluid Volume: 15.5 cm, largest pocket 5.1cm Number: 1 Position: CEPHALIC BIOMETRY: BPD: 7.55 cm; 30w2d; 51.60 % HC: 27.65 cm; 30w2d; 25.30 % AC: 25.62 cm; 29w6d; 42.50 % FL: 5.78 cm; 30w2d; 46.30 % EFW: 1528.77 g; 42.50 %, 3lb 5 oz FL/AC: 22.56 FL/BPD: 76.56 HC/AC: 1.08 GESTATIONAL AGE: Age by EDC: 29w6d MARYAM by EDC: 2024-06-23 Age by US: 30w1d MARYAM by US: 2024-06-21 US/US OB growth IMPRESSION: Normal interval growth Electronically authenticated by: LISA HIGGINBOTHAM Date: 04/13/2024 10:53
--- OUTSIDE RECORDS SUMMARY | 2024-04-13 10:03 | XMS_ITS | CCD ---
Author Organization [facility] Care Team Providers Care Interior Design Instructor Name Role Phone REQUEST, DR NONE LISTED Primary Care Unavaila fox DAMON, DR OSCAR Consulting Unavailable NELSON, DR OSCAR Attending Unavailable NELSON, DR OSCAR Admitting Unavailable Agueda, Nazia Unavailable DAYNE DAMON Attending Unavailable FRANKIE BECKER Attending Unavailable DAYNE DAMON Attending Unavailable FRANKIE BECKER Attending Unavailable DAYNE DAMON Attending Unavailable FRANKIE BECKER [...] Drug Class(es) Dates Sig (Normalized) Sig (Original) [id number] 200 actuat albuterol 0.09 mg/actuat metered dose [...] (COVID-19) RNA SHEKHAR+probe Ql (Unsp spec) Negative [employer] Other COVID/FLU/RSV RT-PCR Negative [employer] Other COVID/FLU/RSV RT-PCR Positive [employer] Other PAP ACOG PANEL 2: 21 to 29on 05-10-[address] [facility] Comment on above: Performed By: #### [id number] #### [facility] [address] [address] [address] Stewart Espinal Age Gdln ACOG Testing - Normal [facility] Comment on above: Performed By: #### [id number] #### [facility] [address] [address] [address] Stewart Espinal DIAGNOSIS: Comment [facility] Comment on above: Result Comment: NEGA TIVE FOR INTRAEPITHELIAL LESION OR MALIGNANCY. Performed By: #### [id number] #### [facility] [address] [place] [address] Dr. Stewart Espinal Methodology: Comment [facility] Comment on above: Result Comment: This liquid based ThinPrep(R) pap test was screened with the use of an image guided system. Performed By: #### 4 [id number] #### [facility] [address] [place] [address] Dr. Stewart Espinal Note: Comment Normal [facility] Comment on above: Result Comment: The Pap smear is a screening test designed to aid in the detection of premalignant and malignant conditions of the uterine cervix. It is not a diagnostic procedure and should not be used as the sole means of detecting cervical cancer. Both false-positive and false-negative reports do occur. . Performed By: #### [id number] #### [facility] [address] [place] [address] Dr. Stewart Espinal Performed by: Comment Normal [facility] Comment on above: Result Comment: Amanda Lozano, Army Officer (ASCP) Performed By: #### [id number] #### [facility] [address] [place] [address] Dr. Stewart Espinal Reflex Criteria: Comment [facility] Comment on above: Result Comment: The HPV DNA reflex criteria were not met with this specimen result therefore, no HPV testing was performed. . Performed By: #### 4 [id number] #### [facility] [address] [place] [address] Dr. Stewart Espinal Specimen adequacy: Comment [facility] Comment on above: Result Comment: Sati sfactory for evaluation. Endocervical and/or squamous metaplastic cells (endocervical component) are present. Performed By: #### 4 [id number] #### [facility] [address] [place] [address] Dr. Stewart Espinal Lab Reportson 08-07-2020 Lab Reports [id number] 0CD:127 Normal [facility] Provider Letter FTMCon 08-07 Provider Letter [facility] Iggy Pollack MD [address] [place] [address] Re: TONNY ACEVES Date of : 1995 Thank you for your referral of Tonny Aceves who was seen on consultation on August 02, 2020, for Left breast abscess. I have enclosed my consultation notes for your review. I will happy to follow Tonny should her symptoms persist. Sincerely, Ino Toledo MD General Surgery Normal [facility] Lab Reportson 08-04-2020 Lab Reports [id number] 0CD:127 Normal [facility] Ambulatory Clinical Summaryo n 08-02-2020 Ambulatory Clinical Summary {[id number] Normal [facility] General Surgery Office/Clini c Noteon 08-02-2020 [...] shower to get remaining purulent material out; [place] and Ibuprofen for pain; follow up Friday [...] EST, Weight Dosing I&D abscess simple single 37281 Wound Culture Acute postoperative pain (G89.18: Other [...] tab(s), Oral, BID ciprofloxacin 500 mg Tab [place] 325 mg-5 mg oral tablet, 1 tab(s), Oral, q4hr, PRN Allergies No Known Allergies No Known Medication Allergies Social History Alcohol - Denies Alcohol Use, 08/02/2020 Substance Abuse - Denies Substance Abuse, 08/02/2020 Tobacco Former smoker, quit more than 30 days ago Tobacco Use:., 08/02/2020 Family History Family history is negative Normal [facility] Comment on above: Result Comment: Elec tronically Signed By: TONJA CUBA, Ino Vasques.nate\Date and [...] area. HOME CARE INSTRUCTIONS ? Only take [id number]-uan-itdpnow or prescription medicines for pain, discomfort, or [...] Document Reviewed: 10/30/2012 ExitCare? Patient Information ?2013 [employer] [facility] Vital Signs Date Time Vital Sign Value Performing Clinician Facility 07-11-2023 11:20-0500 Body height 165.1 cm Nazia Chimond Other [employer] Other 07-11-2023 11:20-0500 Body mass index (BMI) [Ratio] 34.88 kg/m2 Nazia Agueda Other [employer] Other 07-11-2023 11:20-0500 Body temperature 98.6 [degF] Nazia Agueda Other [employer] Other 07-11-2023 11:20-0500 Body weight 95.07 kg Nazia Agueda Other [employer] Other 07-11-2023 11:20-0500 Diastolic blood pressure 71 mm[Hg] Nazia Agueda Other [employer] Other 07-11-2023 11:20-0500 Respiratory rate 18 /min Nazia Agueda Other [employer] Other 07-11-2023 11:20-0500 SaO2% (BldA) [Mass fraction] 99 % Nazia Romeo Other [employer] Other 07-11-2023 11:20-0500 Systolic blood pressure 97 mm[Hg] Nazia Romeo Other [employer] Other 07-03-2022 13:25-0400 Body height 165.1 cm Nazia Romeo Other [employer] Other 07-03-2022 13:25-0400 Body mass index (BMI) [Ratio] 31.61 kg/m2 Nazia Chimond Other [employer] Other 07-03-2022 13:25-0400 Body temperature 100.4 [degF] Nazia Romeo Other [employer] Other 07-03-2022 13:25-0400 Body weight 86.18 kg Nazia Romeo Other [employer] Other 07-03-2022 13:25-0400 Respiratory rate 18 /min Nazia Chimond Other [employer] Other 07-03-2022 13:25-0400 SaO2% (BldA) [Mass fraction] 96 % Nazia Agueda Other [employer] Other Encounters Encounter Date Encounter Type Care Provider Facility Start: 03-30-2024 End: 03-30-2024 ambulatory FRANKIE BECKER Not Available Start: 03-09-2024 End: 03-09-2024 ambulatory DAYNE DAMON Not Available Start: 02-05-2024 End: 02-05-2024 ambulatory DAYNE NELSON Not Available Start: 01-07-2024 End: 01-07-2024 ambulatory FRANKIE BECKER Not Available Start: 12-09-2023 End: 12-09-2023 ambulatory DAYNE HUBBARDO Not Available Start: 11-06-2023 End: 11-06-2023 ambulatory DAYNE HUBBARDO Not Available Start: 08-05-2023 End: 08-05-2023 ambulatory FRANKIE BECKER Not Available Start: 07-11-2023 End: 07-11-2023 ambulatory Nazia Agueda Other [employer] Other Start: 07-11-2023 Office outpatient vi sit 15 minutes Nazia Agueda [facility] Start: 07-03-2022 End: 07-03-2022 ambulatory Nazia Agueda Other [employer] Other Start: 07-03-2022 Office outpatient vi sit 15 minutes Nazia Agueda [facility] Start: 05-07-2022 End: 05-07-[address] NONE LISTED REQUEST Facility: Payers Date Payer Category Payer Unknown [id number] 2.16.84 [id number] 1995 Unknown [id number] 2.16.84 [id number] 1995 Unknown [id number] 2.16.84 [id number] 1995 Unknown [id number] 2.16.84 [id number] 1993 Unknown [id number] 2.16.84 [id number] 1993 Unknown [id number] .16.84 [id number] 1993 Unknown [id number] 2.16.84 [id number] 1993 Unknown [id number] 2.16.840 .[id number] 1959 Unknown [id number] Social History Date Type Detail Facility Unknown if ever smoked [employer] Other Sex Assigned At Sex Assigned At Bir th [employer] Other Evaluation note 07-11-2023 Note Date & [...] days. May return to work on Friday [employer] Other Evaluation note 07-03-2022 Note Date & [...] no improvement in 2 to 3 days. [employer] Other History general Narrative - Reported Note Date & Type Note Facility History general Narrative - Reported Type Surgical History tonsillectomy Surgical History wisdom teeth Hospitalization History see above [employer] Other Summary Purpose Family History No Family History Records FoundNo Family History Records FoundNo Family History Records Found Advance Directives No Advanced Directives Records FoundNo Advanced Directives Records FoundNo Advanced Directives Records Found Additional Source Comments INFORMATION SOURCE (unrecogn ized section and content) DATE CREATED AUTHOR 08/30/2020 [facility] [employer] DATE CREATED AUTHOR AUTHOR'S ORGANIZ ATION 05/11/2022 [facility] DATE CREATED AUTHOR AUTHOR'S ORGANIZ ATION 04/01/2024 [facility] EPIC REASON FOR VISIT [...] BE BASED ON THE PRIMARY CLINICAL RECORDS. [facility]. provides no warranty or guarantee of the accuracy or completeness of information in this document.
== END 2024-04-13 10:00 | disposition home or self-care (01) ==
LOC: NOMS 09:59
PROVIDERS: Visit Provider Physician Assistant
DX: O26.843 Uterine size-date discrepancy, third trimester (principal); Z3A.30 30 weeks gestation of pregnancy
CPT/HCPCS: 76816

== ENCOUNTER 2024-05-25 10:55 | Outpatient (OUT) | payer OTHER, SELFPAY ==
--- NOTE | 2024-05-25 10:57 | US_ITS ---
[address] [address] Patient Name: VJ ACEVES MRN: [id number] date: 1995 Sex: F Assigned Patient Location: [facility] Current Patient Location: [facility] Accession/Order Number: [id number] Exam Date: 05/25/2024 10:58 Report Date: 05/25/2024 13:21 At the request of: DAYNE DAMON Procedure: US OB growth EXAMINATION: US OB growth HISTORY: LARGE FOR GESTATIONAL AGE COMPARISON: Ultrasound OB growth 04/13/2024 FINDINGS: Heart Rate: 146 bpm Amniotic Fluid Volume: 19.0 cm; normal range Number: 1 Position: Cephalic BIOMETRY: BPD: 8.90 cm; 36 weeks 0 days; 61.90 % HC: 32.74 cm; 37 weeks 1 day; 51.20 % AC: 31.53 cm; 35 weeks 3 days; 48 % FL: 6.88 cm; 35 weeks 2 days; 30.90 % EFW: 2729.40 g; 44.70 % FL/AC: 21.82 FL/BPD: 77.30 HC/AC: 1.04 OTHER: Bilateral scrotal hydroceles. GESTATIONAL AGE: Age by EDC: 35 weeks 6 days MARYAM by EDC: 2024-06-23 Age by US: 36 weeks 0 days MARYAM by US: 2024-06-22 US/US OB growth IMPRESSION: 1. Single live intrauterine with growth detailed above. 2. Bilateral scrotal hydroceles. Electronically authenticated by: LUZMA TRIPP Date: 05/25/2024 13:21
--- OUTSIDE RECORDS SUMMARY | 2024-05-25 11:16 | XMS_ITS | CCD ---
Author Organization [facility] Care Team Providers Care Chip Washer Name Role Phone REQUEST, DR NONE LISTED Primary Care Unavaila fox DAMON, DR OSCAR Consulting Unavailable NELSON, DR OSCAR Attending Unavailable NELSON, DR OSCAR Admitting Unavailable Nazia Romeo Unavailable DAYNE DAMON Attending Unavailable FRANKIE BECKER Attending Unavailable DAYNE DAMON Attending Unavailable FRANKIE BECKER Attending Unavailable DAYNE DAMON Attending Unavailable FRANKIE BECKER Attending Unavailable NELSON, DAYNE Attending Unavailable FRANKIE BECKER Attending Unavailable VENANCIO LOBATO Attending Unavailable FRANKIE BECKER Referring Unavailable DAYNE DAMON Attending Unavailable Medications Current [...] Drug Class(es) Dates Sig (Normalized) Sig (Original) [id number] 200 actuat albuterol 0.09 mg/actuat metered dose [...] (COVID-19) RNA SHEKHAR+probe Ql (Unsp spec) Negative [employer] Other COVID/FLU/RSV RT-PCR Negative [employer] Other COVID/FLU/RSV RT-PCR Positive [employer] Other PAP ACOG PANEL 2: 21 to 29on 05-10-2022 . . Normal [facility] Comment on above: Performed By: #### [id number] #### [facility] [address] [place], [place] [address] Dr. Stewart Espinal Age Gdln ACOG Testing 19- Normal [facility] Comment on above: Performed By: #### [id number] #### [facility] [address] [place] [address] Dr. Stewart Espinal DIAGNOSIS: Comment Normal [facility] Comment on above: Result Comment: NEGA TIVE FOR INTRAEPITHELIAL LESION OR MALIGNANCY. Performed By: #### [id number] #### [facility] [address] [place] [address] Dr. Stewart Espinal Methodology: Comment Normal [facility] Comment on above: Result Comment: This liquid based ThinPrep(R) pap test was screened with the use of an image guided system. Performed By: #### 4 [id number] #### [facility] [address] [place] [address] Dr. Stewart Espinal Note: Comment Normal [facility] Comment on above: Result Comment: The Pap smear is a screening test designed to aid in the detection of premalignant and malignant conditions of the uterine cervix. It is not a diagnostic procedure and should not be used as the sole means of detecting cervical cancer. Both false-positive and false-negative reports do occur. . Performed By: #### 4 [id number] #### [facility] [address] [place] [address] Dr. Stewart Espinal Performed by: Comment Normal [facility] Comment on above: Result Comment: Amanda Lozano, Smoking Pipe Driller And Threader (ASCP) Performed By: #### 4 [id number] #### [facility] [address] [place] [address] Dr. Stewart Espinal Reflex Criteria: Comment Normal [facility] Comment on above: Result Comment: The HPV DNA reflex criteria were not met with this specimen result therefore, no HPV testing was performed. . Performed By: #### 4 [id number] #### [facility] [address] [place] [address] Dr. Stewart Espinal Specimen adequacy: Comment [facility] Comment on above: Result Comment: Sati sfactory for evaluation. Endocervical and/or squamous metaplastic cells (endocervical component) are present. Performed By: #### 4 [id number] #### [facility] [address] [place] [address] Dr. Stewart Espinal Lab Reportson 08-07-2020 Lab Reports [id number] 0CD:127 Normal [facility] Provider Letter FTMCon 08-07 Provider Letter [facility] Iggy Pollack MD [facility] [place] [address] Re: TONNY ACEVES Date of : 1995 Thank you for your referral of Tonny Aceves who was seen on consultation on August 02, 2020, for Left breast abscess. I have enclosed my consultation notes for your review. I will happy to follow Tonny should her symptoms persist. Sincerely, Ino Toledo MD General Surgery Normal [facility] Lab Reportson 08-04-2020 Lab Reports [id number] 0CD:127 Normal [facility] Ambulatory Clinical Summaryo n 08-02-2020 Ambulatory Clinical Summary {[id number] Normal [facility] General Surgery Office/Clini c Noteon 08-02-2020 General [...] with patient. Procedure left breast prepped and aped; anesthetized with 10 ml of 1% lidocaine [...] shower to get remaining purulent material out; [place] and Ibuprofen for pain; follow up Friday [...] EST, Weight Dosing I&D abscess simple single 12961 Wound Culture Acute postoperative pain (G89.18: Other [...] tab(s), Oral, BID ciprofloxacin 500 mg Tab [place] 325 mg-5 mg oral tablet, 1 tab(s), Oral, q4hr, PRN Allergies No Known Allergies No Known Medication Allergies Social History Alcohol - Denies Alcohol Use, 08/02/2020 Substance Abuse - Denies Substance Abuse, 08/02/2020 Tobacco Former smoker, quit more than 30 days ago Tobacco Use:., 08/02/2020 Family History Family history is negative Normal [facility] Comment on above: Result Comment: Elec tronically [...] area. HOME CARE INSTRUCTIONS ? Only take ddnz-vme-sqieyfc or prescription medicines for pain, discomfort, or [...] Document Reviewed: 10/30/2012 ExitCare? Patient Information ?2013 [employer] [facility] Vital Signs Date Time Vital Sign Value Performing Clinician Facility 07-11-2023 11:20-0500 Body height 165.1 cm Nazia Chimond Other [employer] Other 07-11-2023 11:20-0500 Body mass index (BMI) [Ratio] 34.88 kg/m2 Nazia Agueda Other [facility] Other 07-11-2023 11:20-0500 Body temperature 98.6 [degF] Nazia Agueda Other [facility] Other 07-11-2023 11:20-0500 Body weight 95.07 kg Nazia hCimond Other [facility] Other 07-11-2023 11:20-0500 Diastolic blood pressure 71 mm[Hg] Nazia Agueda Other [facility] Other 07-11-2023 11:20-0500 Respiratory rate 18 /min Nazia Chimond Other [facility] Other 07-11-2023 11:20-0500 SaO2% (BldA) [Mass fraction] 99 % Nazia hCimond Other [facility] Other 07-11-2023 11:20-0500 Systolic blood pressure 97 mm[Hg] Nazia Agueda Other [facility] Other 07-03-2022 13:25-0400 Body height 165.1 cm Nazia Chimond Other [facility] Other 07-03-2022 13:25-0400 Body mass index (BMI) [Ratio] 31.61 kg/m2 Nazia Agueda Other [facility] Other 07-03-2022 13:25-0400 Body temperature 100.4 [degF] Nazia Agueda Other [facility] Other 07-03-2022 13:25-0400 Body weight 86.18 kg Nazia Agueda Other [facility] Other 07-03-2022 13:25-0400 Respiratory rate 18 /min Nazia Agueda Other [facility] Other 07-03-2022 13:25-0400 SaO2% (BldA) [Mass fraction] 96 % Nazia Agueda Other [employer] Other Encounters Encounter Date Encounter Type Care Provider Facility Start: 05-11-2024 End: 05-11-2024 ambulatory DAYNE DAMON Not Available Start: 05-07-2024 End: 05-07-2024 ambulatory VENANCIO LOBATO Not Available Start: 04-27-2024 End: 04-27-2024 ambulatory FRANKIE EUGENIO Not Available Start: 04-13-2024 End: 04-13-2024 ambulatory DAYNE NELSON Not Available Start: 03-30-2024 End: 03-30-2024 ambulatory FRANKIE EUGENIO Not Available Start: 03-09-2024 End: 03-09-2024 ambulatory DAYNE NELSON Not Available Start: 02-05-2024 End: 02-05-2024 ambulatory DAYNE NELSON Not Available Start: 01-07-2024 End: 01-07-2024 ambulatory FRANKIE EUGENIO Not Available Start: 12-09-2023 End: 12-09-2023 ambulatory DAYNE NELSON Not Available Start: 11-06-2023 End: 11-06-2023 ambulatory DAYNE NELSON Not Available Start: 08-05-2023 End: 08-05-2023 ambulatory FRANKIE EUGENIO Not Available Start: 07-11-2023 End: 07-11-2023 ambulatory Nazia Agueda Other [facility] Other Start: 07-11-2023 Office outpatient vi sit 15 minutes Nazia Agueda [facility] Start: 07-03-2022 End: 07-03-2022 ambulatory Nazia Agueda Other [facility] Other Start: 07-03-2022 Office outpatient vi sit 15 minutes Nazia Agueda [facility] Start: 05-07-2022 End: 05-07-[address] NONE LISTED REQUEST Facility: Payers Date Payer Category Payer Unknown [id number] 10.17. [id number] 1995 Unknown [id number] 1995 Unknown [id number] 1993 Unknown [id number] 2.16.84 0.1.393060.3.579.2.1259 1995 Unknown [id number] 2.16.84 0.1.699088.3.579.2.9 1995 Unknown [id number] 2.16.84 0.1.750173.3.579.2.9 1993 Unknown [id number] 2.16.84 0.1.044499.3.579.2.1258 1993 Unknown [id number] 2.16.84 0.1.074692.3.579.2.9 1993 Unknown [id number] 2.16.84 0.1.322006.3.579.2.9 1995 Unknown [id number] 2.16.84 0.1.589529.3.579.2.9 1993 Unknown [id number] 2.16.84 0.1.665793.3.579.2.9 1993 Unknown [id number] 2.16.840 .[id number] 1959 Unknown [id number] Social History Date Type Detail Facility Unknown if ever smoked [employer] Other Sex Assigned At Sex Assigned At Bir th [employer] Other Evaluation note 07-11-2023 Note Date & [...] days. May return to work on Friday [employer] Other Evaluation note 07-03-2022 Note Date & [...] no improvement in 2 to 3 days. [employer] Other History general Narrative - Reported Note Date & Type Note Facility History general Narrative - Reported Type Surgical History tonsillectomy Surgical History wisdom teeth Hospitalization History see above [facility] Other Summary Purpose Family History No Family History Records FoundNo Family History Records FoundNo Family History Records Found Advance Directives No Advanced Directives Records FoundNo Advanced Directives Records FoundNo Advanced Directives Records Found Additional Source Comments INFORMATION SOURCE (unrecogn ized section and content) DATE CREATED AUTHOR 08/30/2020 [employer] [facility] DATE CREATED AUTHOR AUTHOR'S ORGANIZ ATION 05/11/2022 [facility] DATE CREATED AUTHOR AUTHOR'S ORGANIZ ATION 05/12/2024 [place] [facility] EPIC REASON FOR VISIT (unrecogniz [...] BE BASED ON THE PRIMARY CLINICAL RECORDS. [employer] provides no warranty or guarantee of the accuracy or completeness of information in this document.
== END 2024-05-25 10:56 | disposition home or self-care (01) ==
LOC: NOMS 10:55
PROVIDERS: Visit Provider Obstetrics & Gynecology
DX: Z34.93 Encounter for supervision of normal pregnancy, unspecified, third trimester (principal); O26.843 Uterine size-date discrepancy, third trimester; Z3A.35 35 weeks gestation of pregnancy
CPT/HCPCS: 76816; 87081; 87150

== ENCOUNTER 2024-05-25 19:11 | Outpatient (REF) | payer OTHER, SELFPAY ==
--- OUTSIDE RECORDS SUMMARY | 2024-05-25 19:15 | XMS_ITS | CCD ---
Author Organization [facility] Care Team Providers Care Anthropology And Archeology Instructor Name Role Phone REQUEST, DR NONE [...] Drug Class(es) Dates Sig (Normalized) Sig (Original) [id number] 200 actuat albuterol 0.09 mg/actuat metered dose [...] (COVID-19) RNA SHEKHAR+probe Ql (Unsp spec) Negative [facility] Other COVID/FLU/RSV RT-PCR Negative [facility] Other COVID/FLU/RSV RT-PCR Positive [facility] Other PAP ACOG PANEL 2: 21 to 29on 05-10-2022 . . Normal [facility] Comment on above: Performed By: #### [id number] #### [facility] [address], [place] [address] Dr. Stewart Espinal Age Gdln ACOG Testing 19- Normal [facility] Comment on above: Performed By: #### [id number] #### [facility] [address] [place] [address] Dr. Stewart Espinal DIAGNOSIS: Comment Normal [facility] Comment on above: Result Comment: NEGA TIVE FOR INTRAEPITHELIAL LESION OR MALIGNANCY. Performed By: #### [id number] #### [facility] [address] [place] [address] Dr. Stewart Espinal Methodology: Comment Normal [facility] Comment on above: Result Comment: This liquid based ThinPrep(R) pap test was screened with the use of an image guided system. Performed By: #### 4 [id number] #### [facility] [address] [place] [address] Dr. Stewart Espinal Note: Comment Normal [facility] Comment on above: Result Comment: The Pap smear is a screening test designed to aid in the detection of premalignant and malignant conditions of the uterine cervix. It is not a diagnostic procedure and should not be used as the sole means of detecting cervical cancer. Both false-positive and false-negative reports do occur. . Performed By: #### 4 [id number] #### [facility] [address] [place] [address] Dr. Stewart Espinal Performed by: Comment Normal [facility] Comment on above: Result Comment: Amanda Lozano, Furrier Shop Supervisor (ASCP) Performed By: #### [id number] #### [facility] [address] [place] [address] Dr. Stewart Espinal Reflex Criteria: Comment Normal [facility] Comment on above: Result Comment: The HPV DNA reflex criteria were not met with this specimen result therefore, no HPV testing was performed. . Performed By: #### 4 [id number] #### [facility] [address] [place] [address] Dr. Stewart Espinal Specimen adequacy: Comment [facility] Comment on above: Result Comment: Sati sfactory for evaluation. Endocervical and/or squamous metaplastic cells (endocervical component) are present. Performed By: #### 4 [id number] #### [facility] [address] [place] [address] Dr. Stewart Espinal Lab Reportson 08-07-2020 Lab Reports [id number] 0CD:127 Normal [facility] Provider Letter FTMCon 08-07 Provider [place] [facility] Poll[place] [place] [address] Re: TONNY ACEVES Date of : 1995 Thank you for your referral of Tonny Aceves who was seen on consultation on August 02, 2020, for Left breast abscess. I have enclosed my consultation notes for your review. I will happy to follow Tonny should her symptoms persist. Sincerely, Ino Toledo MD General Surgery Normal [facility] Lab Reportson 08-04-2020 Lab Reports [id number] 0CD:127 Normal [facility] Ambulatory Clinical Summaryo n 08-02-2020 Ambulatory Clinical Summary {[id number] Normal [facility] General Surgery Office/Clini c Noteon 08-02-2020 General [...] shower to get remaining purulent material out; [place] and Ibuprofen for pain; follow up Friday [...] EST, Weight Dosing I&D abscess simple single 34020 Wound Culture Acute postoperative pain (G89.18: Other [...] tab(s), Oral, BID ciprofloxacin 500 mg Tab [place] 325 mg-5 mg oral tablet, 1 tab(s), Oral, q4hr, PRN Allergies No Known Allergies No Known Medication Allergies Social History Alcohol - Denies Alcohol Use, 08/02/2020 Substance Abuse - Denies Substance Abuse, 08/02/2020 Tobacco Former smoker, quit more than 30 days ago Tobacco Use:., 08/02/2020 Family History Family history is negative Normal [facility] Comment on above: Result Comment: Elec tronically [...] area. HOME CARE INSTRUCTIONS ? Only take wdtp-lit-uxkvtlw or prescription medicines for pain, discomfort, or [...] Document Reviewed: 10/30/2012 ExitCare? Patient Information ?2013 [employer] [facility] Vital Signs Date Time Vital Sign Value Performing Clinician Facility 07-11-2023 11:20-0500 Body height 165.1 cm Nazia Chimond Other [facility] Other 07-11-2023 11:20-0500 Body mass index (BMI) [Ratio] 34.88 kg/m2 Nazia Agueda Other [facility] Other 07-11-2023 11:20-0500 Body temperature 98.6 [degF] Nazia Agueda Other [facility] Other 07-11-2023 11:20-0500 Body weight 95.07 kg Nazia Chimond Other [facility] Other 07-11-2023 11:20-0500 Diastolic blood pressure 71 mm[Hg] Nazia Agueda Other [facility] Other 07-11-2023 11:20-0500 Respiratory rate 18 /min Nazia Chimond Other [facility] Other 07-11-2023 11:20-0500 SaO2% (BldA) [Mass fraction] 99 % Nazia Chimond Other [facility] Other 07-11-2023 11:20-0500 Systolic blood pressure 97 mm[Hg] Nazia Agueda Other [facility] Other 07-03-2022 13:25-0400 Body height 165.1 cm Nazia Chimond Other [facility] Other 07-03-2022 13:25-0400 Body mass index (BMI) [Ratio] 31.61 kg/m2 Nazia Agueda Other [facility] Other 07-03-2022 13:25-0400 Body temperature 100.4 [degF] Nazia Agueda Other [facility] Other 07-03-2022 13:25-0400 Body weight 86.18 kg Nazia Agueda Other [facility] Other 07-03-2022 13:25-0400 Respiratory rate 18 /min Nazia Agueda Other [facility] Other 07-03-2022 13:25-0400 SaO2% (BldA) [Mass fraction] 96 % Nazia Agueda Other [facility] Other Encounters Encounter Date Encounter Type Care [...] 07-11-2023 End: 07-11-2023 ambulatory Nazia Agueda Other [facility] Other Start: 07-11-2023 Office outpatient vi sit 15 minutes Nazia Agueda [facility] Start: 07-03-2022 End: 07-03-2022 ambulatory Nazia Agueda Other [facility] Other Start: 07-03-2022 Office outpatient vi sit 15 minutes Nazia Agueda [facility] Start: 05-07-2022 End: 05-07-[address] NONE LISTED REQUEST Facility: Payers Date Payer Category Payer Unknown [id number] 10.17. [id number] 1995 Unknown [id number] [id number] 1995 Unknown [id number] [id number] 1993 Unknown [id number] 2.16.84 0.1.855248.3.579.2.1259 1993 Unknown [id number] 2.16.84 0.1.248415.3.579.2.9 1993 Unknown [id number] 2.16.84 0.1.558549.3.579.2.9 1993 Unknown [id number] 2.16.84 0.1.720121.3.579.2.1258 1993 Unknown [id number] 2.16.84 0.1.814414.3.579.2.9 1993 Unknown [id number] 2.16.84 0.1.304517.3.579.2.9 1993 Unknown [id number] 2.16.84 0.1.830322.3.579.2.9 1993 Unknown [id number] 2.16.84 0.1.863036.3.579.2.9 1993 Unknown [id number] 2.16.840 .1.325028.3.579.2.1259 1959 Unknown [id number] Social History Date Type Detail Facility Unknown if ever smoked [facility] Other Sex Assigned At Sex Assigned At Bir th [facility] Other Evaluation note 07-11-2023 Note Date & [...] days. May return to work on Friday [facility] Other Evaluation note 07-03-2022 Note Date & [...] no improvement in 2 to 3 days. [facility] Other History general Narrative - Reported Note Date & Type Note Facility History general Narrative - Reported Type Surgical History tonsillectomy Surgical History wisdom teeth Hospitalization History see above [facility] Other Summary Purpose Family History No Family History Records FoundNo Family History Records FoundNo Family History Records Found Advance Directives No Advanced Directives Records FoundNo Advanced Directives Records FoundNo Advanced Directives Records Found Additional Source Comments INFORMATION SOURCE (unrecogn ized section and content) DATE CREATED AUTHOR 08/30/2020 [employer] [facility] DATE CREATED AUTHOR AUTHOR'S ORGANIZ ATION 05/11/2022 [facility] DATE CREATED AUTHOR AUTHOR'S ORGANIZ ATION 05/12/2024 [facility] dical Specialists EPIC REASON FOR VISIT (unrecogniz [...] BE BASED ON THE PRIMARY CLINICAL RECORDS. [employer] provides no warranty or guarantee of the accuracy or completeness of information in this document.
== END 2024-05-25 19:12 | disposition home or self-care (01) ==
LOC: LAB 19:11
PROVIDERS: Visit Provider Obstetrics & Gynecology
DX: Z34.93 Encounter for supervision of normal pregnancy, unspecified, third trimester (principal); Z3A.35 35 weeks gestation of pregnancy
CPT/HCPCS: 87081; 87150

== ENCOUNTER 2024-05-30 21:19 | Observation (INO) | payer OTHER, SELFPAY ==
--- OUTSIDE RECORDS SUMMARY | 2024-05-30 21:24 | XMS_ITS | CCD ---
Author Organization [facility] Care Team Providers Care Automotive Collision Estimator Name Role Phone REQUEST, DR NONE LISTED [...] BECKER Referring Unavailable DAYNE DAMON Attending Unavailable DAYNE DAMON Attending Unavailable Medications [...] Drug Class(es) Dates Sig (Normalized) Sig (Original) [id number] 200 actuat albuterol 0.09 mg/actuat metered dose [...] (COVID-19) RNA SHEKHAR+probe Ql (Unsp spec) Negative [facility] Other COVID/FLU/RSV RT-PCR Negative [facility] Other COVID/FLU/RSV RT-PCR Positive [facility] Other PAP ACOG PANEL 2: 21 to 29on 05-10-2022 . . Normal [facility] Comment on above: Performed By: #### [id number] #### [facility] [address] [place] [address] Dr. Stewart Espinal Age Gdln ACOG Testing 19- Normal [facility] Comment on above: Performed By: #### 4 [id number] #### [facility] [address] [place] [address] Dr. Stewart Espinal DIAGNOSIS: Comment Normal [facility] Comment on above: Result Comment: NEGA TIVE FOR INTRAEPITHELIAL LESION OR MALIGNANCY. Performed By: #### 4 [id number] #### [facility] [address] [place] [address] Dr. Stewart Espinal Methodology: Comment Normal [facility] Comment on above: Result Comment: This liquid based ThinPrep(R) pap test was screened with the use of an image guided system. Performed By: #### 4 [id number] #### [facility] [address] [place] [address] Dr. Stewart Espinal Note: Comment Normal [facility] Comment on above: Result Comment: The Pap smear is a screening test designed to aid in the detection of premalignant and malignant conditions of the uterine cervix. It is not a diagnostic procedure and should not be used as the sole means of detecting cervical cancer. Both false-positive and false-negative reports do occur. . Performed By: #### 4 [id number] #### [facility] [address] [place] [address] Dr. Stewart Espinal Performed by: Comment Normal [facility] Comment on above: Result Comment: Amanda Lozano, Fabric Finisher (ASCP) Performed By: #### 4 [id number] #### [facility] [address] [place] [address] Dr. Stewart Espinal Reflex Criteria: Comment Normal [facility] Comment on above: Result Comment: The HPV DNA reflex criteria were not met with this specimen result therefore, no HPV testing was performed. . Performed By: #### 4 [id number] #### [facility] [address] [place] [address] Dr. Stewart Espinal Specimen adequacy: Comment [facility] Comment on above: Result Comment: Sati sfactory for evaluation. Endocervical and/or squamous metaplastic cells (endocervical component) are present. Performed By: #### 4 [id number] #### [facility] [address] [place] [address] Dr. Stewart Espinal Lab Reportson 08-07-2020 Lab Reports [id number]. [id number] 0CD:127 Normal [facility] Provider Letter FTMCon 08-07 Provider Letter [facility] Iggy Pollack MD [address] [place] [id number] Re: TONNY ACEVES Date of : 1995 Thank you for your referral of Tonny Aceves who was seen on consultation on August 02, 2020, for Left breast abscess. I have enclosed my consultation notes for your review. I will happy to follow Tnony should her symptoms persist. Sincerely, Ino Toledo MD General Surgery Normal [facility] Lab Reportson 08-04-2020 Lab Reports [id number] 0CD:127 Normal [facility] Ambulatory Clinical Summaryo n 08-02-2020 Ambulatory Clinical Summary {[id number] Normal [facility] General Surgery Office/Clini c Noteon [...] shower to get remaining purulent material out; [place] and Ibuprofen for pain; follow up Friday for wound check; call sooner if problems/questions. Ordered: acetaminophen-hydrocod one, 1 tab(s), Oral, q4hr for pain, 18 tab(s), Refill(s) 0, take with food or milk, [id number], 162.5, cm, 08/02/20 14:45:00 EST, Height/Length Dosing, 83.4, kg, 08/02/20 14:45:00 EST, Weight Dosing sulfamethoxazole-trime thoprim, 1 tab(s), Oral, BID for 10 day(s), 20 tab(s), Refill(s) 0, [id number], 162.5, cm, 08/02/20 14:45:00 EST, Height/Length Dosing, 83.4, kg, 08/02/20 14:45:00 EST, Weight Dosing I&D abscess simple single 16212 Wound Culture Acute postoperative pain (G89.18: Other [...] tab(s), Oral, BID ciprofloxacin 500 mg Tab [place] 325 mg-5 mg oral tablet, 1 tab(s), Oral, q4hr, PRN Allergies No Known Allergies No Known Medication Allergies Social History Alcohol - Denies Alcohol Use, 08/02/2020 Substance Abuse - Denies Substance Abuse, 08/02/2020 Tobacco Former smoker, quit more than 30 days ago Tobacco Use:., 08/02/2020 Family History Family history is negative Normal [facility] Comment on above: Result Comment: Elec tronically Signed By: OTNJA CUBA, Ino Vasques.nate\Date and Time Signed: 08/02/20 [...] area. HOME CARE INSTRUCTIONS ? Only take orms-fet-djlujdg or prescription medicines for pain, discomfort, or [...] 02/16/2013 Document Reviewed: 10/30/2012 ExitCare? Patient Information ?2014 [employer]. Normal [facility] Vital Signs Date Time Vital Sign Value Performing Clinician Facility 07-11-2023 11:20-0500 Body height 165.1 cm Nazia Chimond Other [facility] Other 07-11-2023 11:20-0500 Body mass index (BMI) [Ratio] 34.88 kg/m2 Nazia Agueda Other [facility] Other 07-11-2023 11:20-0500 Body temperature 98.6 [degF] Nazia Agueda Other [facility] Other 07-11-2023 11:20-0500 Body weight 95.07 kg Nazia Agueda Other [facility] Other 07-11-2023 11:20-0500 Diastolic blood pressure 71 mm[Hg] Nazia Romeo Other [facility] Other 07-11-2023 11:20-0500 Respiratory rate 18 /min Nazia Chimond Other [facility] Other 07-11-2023 11:20-0500 SaO2% (BldA) [Mass fraction] 99 % Nazia Agueda Other [facility] Other 07-11-2023 11:20-0500 Systolic blood pressure 97 mm[Hg] Nazia Agueda Other [facility] Other 07-03-2022 13:25-0400 Body height 165.1 cm Nazia Agueda Other [facility] Other 07-03-2022 13:25-0400 Body mass index (BMI) [Ratio] 31.61 kg/m2 Nazia Agueda Other [facility] Other 07-03-2022 13:25-0400 Body temperature 100.4 [degF] Nazia Agueda Other [facility] Other 07-03-2022 13:25-0400 Body weight 86.18 kg Nazia Agueda Other [facility] Other 07-03-2022 13:25-0400 Respiratory rate 18 /min Nazia Agueda Other [facility] Other 07-03-2022 13:25-0400 SaO2% (BldA) [Mass fraction] 96 % Nazia Agueda Other [facility] Other Encounters Encounter Date Encounter Type Care Provider Facility Start: 05-25-2024 End: 05-25-2024 ambulatory DAYNE DAMON Not Available Start: 05-11-2024 End: 05-11-2024 ambulatory DAYNE NELSON Not Available Start: 05-07-2024 End: 05-07-2024 ambulatory [...] 07-11-2023 End: 07-11-2023 ambulatory Nazia Agueda Other [facility] Other Start: 07-11-2023 Office outpatient vi sit 15 minutes Nazia Agueda [facility] Start: 07-03-2022 End: 07-03-2022 ambulatory Nazia Agueda Other [facility] Other Start: 07-03-2022 Office outpatient vi sit 15 minutes Nazia Agueda [facility] Start: 05-07-2022 End: 05-07-[address] NONE LISTED REQUEST Facility: Payers Date Payer Category Payer Unknown [id number] 2.16.84 [id number] 1995 Unknown [id number] 2.16.84 0.1.934854.3.579.2.1259 1995 Unknown [id number] 2.16.84 0.1.842244.3.579.2.1259 1993 Unknown [id number] 2.16.84 0.1.977869.3.579.2.9 1993 Unknown [id number] 2.16.84 0.1.381773.3.579.2.9 1993 Unknown [id number] 2.16.84 0.1.934493.3.579.2.1258 1993 Unknown [id number] 2.16.84 0.1.158694.3.579.2.1258 1993 Unknown [id number] 2.16.84 0.1.859144.3.579.2.1258 1993 Unknown [id number] 2.16.84 0.1.052234.3.579.2.9 1993 Unknown [id number] 2.16.84 0.1.816122.3.579.2.1258 1993 Unknown [id number] 2.16.84 0.1.743779.3.579.2.9 1993 Unknown [id number] 2.16.84 0.1.525770.3.579.2.1258 1993 Unknown [id number] 2.16.840 .1.779388.3.579.2.1259 1959 Unknown [id number] Social History Date Type Detail Facility Unknown if ever smoked [facility] Other Sex Assigned At Sex Assigned At Bir th [facility] Other Evaluation note 07-11-2023 Note Date & [...] days. May return to work on Friday [facility] Other Evaluation note 07-03-2022 Note Date & [...] no improvement in 2 to 3 days. [facility] Other History general Narrative - Reported Note Date & Type Note Facility History general Narrative - Reported Type Surgical History tonsillectomy Surgical History wisdom teeth Hospitalization History see above [facility] Other Summary Purpose Family History No Family History Records FoundNo Family History Records FoundNo Family History Records Found Advance Directives No Advanced Directives Records FoundNo Advanced Directives Records FoundNo Advanced Directives Records Found Additional Source Comments INFORMATION SOURCE (unrecogn ized section and content) DATE CREATED AUTHOR 08/30/2020 [facility] DATE CREATED AUTHOR AUTHOR'S ORGANIZ ATION 05/11/2022 [facility] [employer] DATE CREATED AUTHOR AUTHOR'S ORGANIZ ATION 05/27/2024 [facility] dical Specialists EPIC REASON FOR VISIT [...] BE BASED ON THE PRIMARY CLINICAL RECORDS. [facility] [employer] [facility]. provides no warranty or guarantee of the accuracy or completeness of information in this document.
[2024-05-30 21:35] VITALS: BP 118/71; PULSE 64
[2024-05-30 21:47] LABS: Bilirubin Urine NEGATIVE (NEGATIVE); Blood Urine NEGATIVE (NEGATIVE); Clarity Urine CLEAR (CLEAR); Color Urine LT. YELLOW (YELLOW); Glucose Urine UA NEGATIVE (NEGATIVE); Ketones Urine NEGATIVE (NEGATIVE); Leukocyte Esterase Urine NEGATIVE (NEGATIVE); Nitrite Urine NEGATIVE (NEGATIVE); Protein Urine NEGATIVE (NEG/TRACE); Urine Microscopic Indicated NO; Urobilinogen Urine 0.2 EU/dL (0.2-1.0)
== END 2024-05-30 22:15 | disposition home or self-care (01) ==
PROVIDERS: Admitting Provider Obstetrics & Gynecology; Visit Provider Obstetrics & Gynecology
DX: O36.8130 Decreased fetal movements, third trimester, not applicable or unspecified (principal); Z3A.36 36 weeks gestation of pregnancy
CPT/HCPCS: 59025; 81003; G0378; G0379

== ENCOUNTER 2024-06-16 04:54 | Inpatient (IN) | payer OTHER, SELFPAY ==
[2024-06-16] VITALS (25 sets, daily range): BP systolic 95–132; BP diastolic 50–85; PULSE 58–126; TEMP 36.7–37.3
--- OUTSIDE RECORDS SUMMARY | 2024-06-16 04:58 | XMS_ITS | CCD ---
Author Organization [facility] Care Team Providers Care System Safety Engineer Name Role Phone REQUEST, DR NONE LISTED Primary Care Unavaila fox CAMARA, DR OSCAR Consulting Unavailable HOA, DR OSCAR Attending Unavailable HOA, DR OSCAR Admitting Unavailable Nazia Romeo Unavailable Elizabet Gutierrez DO Primary Care Provider Aleah Diaz MD Primary Care Provider Wanda CASINO SLOT SUPERVISOR, Pino Unavailable HOA, DAYNE Attending Unavailable EUGENIO, DODIE Attending Unavailable EUGENIO, DODIE Attending Unavailable HOA, DAYNE Attending Unavailable HOA, DAYNE Attending Unavailable EUGENIO, DODIE Attending Unavailable HOA, DAYNE Attending Unavailable EUGENIO, DODIE Attending Unavailable VENANCIO GUADARRAMA Attending Unavailable EUGENIO, DODIE Referring Unavailable HOA, DAYNE Attending Unavailable HOA, DAYNE Attending Unavailable HOA, DAYNE Attending Unavailable WANDA, PINO Attending Unavailable EUGENIO, DODEI Attending Unavailable Medications Current Medications Medication Drug Class(es) Dates Sig (Normalized) Sig (Original) amoxicillin 500 mg oral capsule (1 source) Penicillin-class Antibacterial Start: 07-11-2023 take 1 capsule by mouth every eight hours Amoxicillin 500 MG 1 capsule Orally tid for 10 day(s) Jul, Active docusate sodium 100 mg oral capsule (2 sources) Start: 06-08-2024 End: 06-18-2024 take 1 capsule by mouth twice daily as needed for constipation docusate sodium (Colace) 100 MG capsule Indications: Constipation, unspecified constipation type Take 1 capsule (100 mg) by mouth 2 (two) times a day as needed for constipation for up to 10 days 30 capsule 5 06/08/2024 06/18/2024 Active ketoconazole 20 mg/ml medicated shampoo (8 sources) Azole Antifungal Start: 05-10-2024 ketoconazole (NIZOral) 2 % shampoo Indications: Tinea versicolor Lather on affected areas 2-3 times a week, leave on 5 min before rinsing Do not start before May 10, 2024. 120 mL 11 05/10/2024 Active metFORMIN (2 sources) Biguanide Start: 07-03-2022 metFORMIN HCl Jul, Active venlafaxine (2 sources) Serotonin and Norepinephrine Reuptake Inhibitor Start: 07-03-2022 Venlafaxine HCl Jul, Active Completed/Discontinued Medications Medication Drug Class(es) Dates Sig (Normalized) Sig (Original) [id number] 200 actuat albuterol 0.09 mg/actuat metered dose [...] Active Problems Problem Classification Problem Date Documented Da te Episodic/Chronic Acute bronchitis (1 source) Acute bronchitis due to respiratory syncytial virus Episodic Administrative/social admission (2 sources) First encounter by subject; Translations: [Persons encountering health services in other specified circumstances] 06-02-2024 Episodic Immunizations and screening for infectious disease (1 source) Encounter for screening for human papillomavirus (HPV); Translations: [ENC SCREENING HUMAN PAPILLOMAVIRUS] Onset: 05-09-2022 Episodic Menstrual disorders (8 sources) Dysmenorrhea; Translations: [Dysmenorrhea, unspecified] Onset: 02-07-2023 02-07-2023 Chronic Other gastrointestinal disorders (2 sources) Constipation; Translations: [Constipation, unspecified] 06-08-2024 Episodic Other lower respiratory disease (2 sources) Cough; Translations: [Cough] Episodic Other nutritional; endocrine; and metabolic disorders (8 sources) Obese class I; Translations: [Obesity (BMI 30.0-34.9)] Onset: 02-07-2023 02-07-2023 Chronic Other and delivery including normal (6 sources) Third trimester ; Translations: [Encounter for supervision of normal , unspecified, third trimester] 06-01-2024 Episodic Other screening for suspected conditions (not mental disorders or infectious disease) (4 sources) Encounter for screening for malignant neoplasm of cervix; Translations: [ENC SCREENING MALIG NEOPLASM CERV] Onset: 05-07-2022 Episodic Otitis media and related conditions (1 source) Otitis media, unspecified, right ear Episodic Residual codes; unclassified (2 sources) Procedure related finding; Translations: [Encounter for cosmetic surgery] Episodic Residual codes; unclassified (2 sources) Gestation period, 36 weeks; Translations: [36 weeks gestation of ] 06-01-2024 Episodic Residual codes; unclassified (2 sources) Gestation period, 37 weeks; Translations: [37 weeks gestation of ] 06-08-2024 Episodic Substance-related disorders (8 sources) 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; Translations: [Nicotine dependence, cigarettes, in remission] Onset: 02-07-2023 02-07-2023 Chronic Past or Other Problems Problem Classification Problem Date Documented Da te Episodic/Chronic Mycoses (8 sources) Pityriasis versicolor; Translations: [Pityriasis versicolor] Onset: 02-07-2023 02-07-2023 Episodic Other gastrointestinal disorders (8 sources) Slow transit constipation; Translations: [Slow transit constipation] Onset: 02-07-2023 02-07-2023 Episodic Residual codes; unclassified (8 sources) Acquired absence of organ; Translations: [Acquired absence of other organs] Onset: 02-07-2023 02-07-2023 Episodic Unclassified (1 source) Cough R05.9 Results Test Name Value Interpretation Reference Range Facility Urinalysis macro (dipstick) panel (U)on 06-08-2024 Bilirubin, UA Negative Negative - 4(70) +++ mg/dL [facility] Blood, UA Negative Negative - 50 Polo/mcL [facility] Clarity, UA Clear [facility] Color, UA Yellow [facility] Glucose, UA Negative Negative - 1999(110) ++++ mg/dL [facility] Interpretation and review of laboratory results Normal [facility] Ketones, UA Negative Negative - 160(16) ++++ mg/dL [facility] Leukocytes, UA Negative Negative - 500+++ Jessica/mcL [facility] Nitrite, UA Negative Negative - Positive [facility] pH, UA 6.0 5 - 9 [facility] Protein, UA Negative Negative - 1999(20) ++++ mg/dL [facility] Spec Grav, UA 1.025 1 - 1.03 [facility] care Urobilinogen, UA 0.2 0.2 - 12 mg/dL [facility] Urinalysis macro (dipstick) panel (U)on 06-01-2024 Bilirubin, UA Negative Negative - 4(70) +++ mg/dL [facility] Blood, UA Negative Negative - 50 Polo/mcL [facility] Clarity, UA Clear [facility] Color, UA Yellow [facility] Glucose, UA Negative Negative - 1999(110) ++++ mg/dL [facility] Interpretation and review of laboratory results Normal [facility] Ketones, UA Negative Negative - 160(16) ++++ mg/dL [facility] Leukocytes, UA Negative Negative - 500+++ Jessica/mcL [facility] Nitrite, UA Negative Negative - Positive [facility] pH, UA 6.0 5 - 9 [facility] Protein, UA Negative Negative - 1999(20) ++++ mg/dL [facility] Spec Grav, UA 1.010 1 - 1.03 [facility] care Urobilinogen, UA 0.2 0.2 - 12 mg/dL [facility] COVID/FLU/RSV RT-PCRon 07-03 SARS-CoV-2 (COVID-19) RNA SHEKHAR+probe Ql (Unsp spec) Negative [employer] Other COVID/FLU/RSV RT-PCR Negative [employer] Other COVID/FLU/RSV RT-PCR Positive [employer] Other PAP ACOG PANEL 2: 21 to 29on 05-10-2022 . . Normal [facility] Comment on above: Performed By: #### [id number] #### [facility] [address] [place] [address] Dr. Stewart Espinal Age Gdln ACOG Testing 21-29 [facility] Comment on above: Performed By: #### [id number] #### [facility] [address] [place] [address] Dr. Stewart Espinal DIAGNOSIS: Comment [facility] Comment on above: Result Comment: NEGA TIVE FOR INTRAEPITHELIAL LESION OR MALIGNANCY. Performed By: #### 4 [id number] #### [facility] [address] [place] [address] Dr. Stewart Espinal Methodology: Comment [facility] Comment on above: Result Comment: This liquid based ThinPrep(R) pap test was screened with the use of an image guided system. Performed By: #### [id number] #### [facility] [address] [place] [address] Dr. Stewart Espinal Note: Comment [facility] Comment on above: Result Comment: The Pap smear is a screening test designed to aid in the detection of premalignant and malignant conditions of the uterine cervix. It is not a diagnostic procedure and should not be used as the sole means of detecting cervical cancer. Both false-positive and false-negative reports do occur. . Performed By: #### 4 [id number] #### [facility] [address] [place] [address] Dr. Stewart Espinal Performed by: Comment Normal [facility] Comment on above: Result Comment: Amanda Lozano Rental Management Trainee (ASCP) Performed By: #### [id number] #### [facility] [address] [place] [address] Dr. Stewart Espinal Reflex Criteria: Comment [facility] Comment on above: Result Comment: The HPV DNA reflex criteria were not met with this specimen result therefore, no HPV testing was performed. . Performed By: #### 4 [id number] #### [facility] [address] [address] [address] Stewart Espinal Specimen adequacy: Comment Normal [facility] Comment on above: Result Comment: Sati sfactory for evaluation. Endocervical and/or squamous metaplastic cells (endocervical component) are present. Performed By: #### 4 [id number] #### [facility] [address] [address] [address] Stewart Espinal Lab Reportson 08-07-2020 Lab Reports [id number] .[id number]:127 Normal [facility] Provider Letter FTMCon 08-07 Provider Letter [facility] Iggy Pollack MD [address] [place] [id number] Re: TONNY ACEVES Date of : 1995 Thank you for your referral of Tonny Aceves who was seen on consultation on August 02, 2020, for Left breast abscess. I have enclosed my consultation notes for your review. I will happy to follow Tonny should her symptoms persist. Sincerely, Ino Toledo MD General Surgery Normal [facility] Lab Reportson 08-04-2020 Lab Reports [id number] .[id number]:127 Normal [facility] Ambulatory Clinical Summaryo n 08-02-2020 Ambulatory Clinical Summary {[id number]}CD:[id number] Normal [facility] General Surgery Office/Clini c Noteon 08-02-2020 [...] shower to get remaining purulent material out; [place] and Ibuprofen for pain; follow up Friday for wound check; call sooner if problems/questions. Ordered: acetaminophen-hydroco done, 1 tab(s), Oral, q4hr for pain, 18 tab(s), Refill(s) 0, take with food or milk, [id number], 162.5, cm, 08/02/20 14:45:00 EST, Height/Length Dosing, 83.4, kg, 08/02/20 14:45:00 EST, Weight Dosing sulfamethoxazole-trim ethoprim, 1 tab(s), Oral, BID for 10 day(s), 20 tab(s), Refill(s) 0, [id number], 162.5, cm, 08/02/20 14:45:00 EST, Height/Length Dosing, 83.4, kg, 08/02/20 14:45:00 EST, Weight Dosing I&D abscess simple single [id number] Wound Culture Acute postoperative pain (G89.18: Other acute postprocedural pain) see # 1 Ordered: acetaminophen-hydroco done, 1 tab(s), Oral, q4hr for pain, 18 [...] tab(s), Oral, BID ciprofloxacin 500 mg Tab [place] 325 mg-5 mg oral tablet, 1 tab(s), Oral, q4hr, PRN Allergies No Known Allergies No Known Medication Allergies Social History Alcohol - Denies Alcohol Use, 08/02/2020 Substance Abuse - Denies Substance Abuse, 08/02/2020 Tobacco Former smoker, quit more than 30 days ago Tobacco Use:., 08/02/2020 Family History Family history is negative Normal [facility] Comment on above: Result Comment: Elec [...] area. HOME CARE INSTRUCTIONS ? Only take dqcy-syj-rwgpkuz or prescription medicines for pain, discomfort, or [...] Document Reviewed: 10/30/2012 ExitCare? Patient Information ?2013 [employer]. Normal [facility] Vital Signs Date Time Vital Sign Value Performing Clinician Facility 06-08-2024 10:37-0400 Body mass index (BMI) [Ratio] 39.57 kg/m2 Dodie SHIN Work Phone: [facility] 06-08-2024 10:37-0400 Body weight 107.86 kg Dodie SHIN Work Phone: [facility] 06-08-2024 10:37-0400 Diastolic blood pressure 60 mm[Hg] Dodie SHIN Work Phone: [facility] 06-08-2024 10:37-0400 Systolic blood pressure 100 mm[Hg] Dodie SHIN Work Phone: [facility] 06-02-2024 08:36-0400 Body height 165.1 cm Pino Muñoz CASINO SLOT SUPERVISOR Work Phone: [facility] 06-02-2024 08:36-0400 Body mass index (BMI) [Ratio] 38.57 kg/m2 Pino Muñoz CASINO SLOT SUPERVISOR Work Phone: [facility] 06-02-2024 08:36-0400 Body temperature 97.11 [degF] Pino Muñoz CASINO SLOT SUPERVISOR Work Phone: [facility] 06-02-2024 08:36-0400 Body weight 105.14 kg Pino Muñoz CASINO SLOT SUPERVISOR Work Phone: [facility] 06-02-2024 08:36-0400 Diastolic blood pressure 76 mm[Hg] Pino Muñoz CASINO SLOT SUPERVISOR Work Phone: [facility] 06-02-2024 08:36-0400 Heart rate 79 /min Pino Muñoz CASINO SLOT SUPERVISOR Work Phone: [facility] 06-02-2024 08:36-0400 SaO2% (BldA) [Mass fraction] 98 % Pino Muñoz CASINO SLOT SUPERVISOR Work Phone: [facility] 06-02-2024 08:36-0400 Systolic blood pressure 116 mm[Hg] Pino Muñoz CASINO SLOT SUPERVISOR Work Phone: [facility] 06-01-2024 11:06-0400 Body mass index (BMI) [Ratio] 38.61 kg/m2 Dayne Hoa DO Work Phone: [facility] 06-01-2024 11:06-0400 Body weight 105.23 kg Dayne Hoa DO Work Phone: [facility] 06-01-2024 11:06-0400 Diastolic blood pressure 72 mm[Hg] Dayne Hoa DO Work Phone: [facility] 06-01-2024 11:06-0400 Systolic blood pressure 118 mm[Hg] Dayne Hoa DO Work Phone: [facility] 07-11-2023 11:20-0500 Body height 165.1 cm Nazia Agueda Other [employer] Other 07-11-2023 11:20-0500 Body mass index (BMI) [Ratio] 34.88 kg/m2 Nazia Agueda Other [employer] Other 07-11-2023 11:20-0500 Body temperature 98.6 [degF] Nazia Agueda Other [employer] Other 07-11-2023 11:20-0500 Body weight 95.07 kg Nazia Agueda Other [employer] Other 07-11-2023 11:20-0500 Diastolic blood pressure 71 mm[Hg] Nazia Agueda Other [employer] Other 07-11-2023 11:20-0500 Respiratory rate 18 /min Nazia Agueda Other [employer] Other 07-11-2023 11:20-0500 SaO2% (BldA) [Mass fraction] 99 % Nazia Agueda Other [employer] Other 07-11-2023 11:20-0500 Systolic blood pressure 97 mm[Hg] Nazia Agueda Other [employer] Other 07-03-2022 13:25-0400 Body height 165.1 cm Naiza Agueda Other [employer] Other 07-03-2022 13:25-0400 Body mass index (BMI) [Ratio] 31.61 kg/m2 Nazia Agueda Other [employer] Other 07-03-2022 13:25-0400 Body temperature 100.4 [degF] Nazia Romeo Other [employer] Other 07-03-2022 13:25-0400 Body weight 86.18 kg Nazia Romeo Other [employer] Other 07-03-2022 13:25-0400 Respiratory rate 18 /min Nazia Romeo Other [employer] Other 07-03-2022 13:25-0400 SaO2% (BldA) [Mass fraction] 96 % Nazia Romeo Other [employer] Other Encounters Encounter Date Encounter Type Care Provider Facility Start: 06-08-2024 End: 06-08-2024 Bamboo flowsheet Dodie SHIN Work Phone: [facility] Start: 06-08-2024 End: 06-08-2024 Bamboo flowsheet Dodie SHIN Work Phone: [facility] Start: 06-08-2024 End: 06-08-2024 Office outpatient visit 15 minutes Dodie SHIN Work Phone: [facility] Comment on above: 37 weeks gestation o f ; Third trimester ; Constipation, unspecified constipation type Start: 06-08-2024 End: 06-08-2024 ambulatory DODIE BECKER Not Available Start: 06-02-2024 End: 06-02-2024 Patient encounter status Pino Muñoz CASINO SLOT SUPERVISOR Work Phone: [facility] Start: 06-02-2024 End: 06-02-2024 Periodic preventive med est patient 18-39 yrs Pino Muñoz CASINO SLOT SUPERVISOR Work Phone: [facility] Comment on above: Third trimester preg brady (Primary Dx); Encounter to establish care; Encounter for wellness examination Start: 06-02-2024 End: 06-02-2024 ambulatory PINO MUÑOZ Not Available Start: 06-01-2024 End: 06-01-2024 Bamboo flowsheet Dayne Hoa DO Work Phone: [facility] Start: 06-01-2024 End: 06-01-2024 Bamboo flowsheet Dayne Hoa DO Work Phone: [facility] Start: 06-01-2024 End: 06-01-2024 Office outpatient visit 15 minutes Dayne Hoa DO Work Phone: [facility] Comment on above: Third trimester preg brady; 36 weeks gestation of Start: 06-01-2024 End: 06-01-2024 ambulatory DAYNE HOA Not Available Start: 05-25-2024 End: 05-25-2024 ambulatory DAYNE HOA Not Available Start: 05-11-2024 End: 05-11-2024 ambulatory DAYNE HOA Not Available Start: 05-07-2024 End: 05-07-2024 ambulatory VENANCIOLAURA ORTIZEIM Not Available Start: 04-27-2024 End: 04-27-2024 ambulatory DODIE EUGENIO Not Available Start: 04-13-2024 End: 04-13-2024 ambulatory DAYNE HOA Not Available Start: 03-30-2024 End: 03-30-2024 ambulatory DODIE EUGENIO Not Available Start: 03-09-2024 End: 03-09-2024 ambulatory DAYNE HOA Not Available Start: 02-05-2024 End: 02-05-2024 ambulatory DAYNE HOA Not Available Start: 01-07-2024 End: 01-07-2024 ambulatory DODIE EUGENIO Not Available Start: 12-09-2023 End: 12-09-2023 ambulatory DAYNE HOA Not Available Start: 11-06-2023 End: 11-06-2023 ambulatory DAYNE HOA Not Available Start: 08-05-2023 End: 08-05-2023 ambulatory DODIE EUGENIO Not Available Start: 07-11-2023 End: 07-11-2023 ambulatory Nazia Romeo Other [employer] Other Start: 07-11-2023 Office outpatient vi sit 15 minutes Nazia Chimond [facility] Start: 07-03-2022 End: 07-03-2022 ambulatory Nazia Agueda Other [employer] Other Start: 07-03-2022 Office outpatient vi sit 15 minutes Nazia Chimond [facility] Start: 05-07-2022 End: 05-07-[address] NONE LISTED REQUEST Facility: Procedures Date Procedure Procedure Detail Performing Clinician Start: 06-08-2024 Urnls dip stick/tabl et rgnt non-auto w/o micrscp Dodie SHIN Work Phone: Start: 06-01-2024 Urnls dip stick/tabl et rgnt non-auto w/o micrscp Dayne Genomas Work Phone: Start: 08-05-2023 Microscopic observat ion [Identifier] in Cervix by Cyto stain Dayne Genomas Work Phone: Plan of Treatment Date Care Activity Detail Author Start: 08-05-2028 Screening for malign ant neoplasm of cervix [facility] Start: 07-28-2024 Influenza vaccination Influenza Vacc ine (#1) [facility] Comment on above: Postponed from 05/02 (Patient Refused) Start: 07-06-2024 End: 07-06-2024 Patient encounter procedure 07/06/2024 9:20 AM EST Office Visit [facility] [address] [place] [address] Venancio Guadarrama PA [address] [place] [address] [facility] Start: 06-08-2024 End: 06-08-2024 Patient encounter procedure [facility] Comment on above: Arrived Start: 06-04-2024 End: 06-04-2024 Patient encounter procedure 06/04/2024 10:10 AM EDT Office Visit [facility] [address] [place] [address] Venancio Guadarrama PA [address] [place] [address] [facility] Start: 06-02-2024 End: 06-02-2024 Patient encounter procedure 06/02/2024 8:30 AM EDT Office Visit [facility] [address] [place] [id number] Pino Muñoz NP [address] [facility], [place] [id number] [facility] Start: 06-01-2024 End: 06-01-2024 Patient encounter procedure 06/01/2024 11:00 AM EDT Routine [facility] [address] [place] [address] Dayne Camara, DO [address] Perri Sinclair, [facility] Arrived [facility] Comment on above: Arrived Start: 05-02-2024 Influenza vaccination Influenza Vacc ine (#1) [facility] Immunizations Immunization Date Immunization Notes Care Provider [facility] 01-04-1999 hepatitis B vaccine, pediatric or pediatric/adolescent dosage Dayne Hoa DO Work Phone: [facility] 12-13-1998 diphtheria, tetanus toxoids and acellular pertussis vaccine, unspecified formulation Dayne Hoa DO Work Phone: [facility] 12-13-1998 measles, mumps and rubella virus vaccine Dayne Hoa DO Work Phone: [facility] 12-13-1998 trivalent poliovirus vaccine, live, oral Dayne Hoa DO Work Phone: [facility] 01-16-1995 diphtheria, tetanus toxoids and pertussis vaccine [facility] Hoa DO Work Phone: [facility] 01-16-1995 trivalent poliovirus vaccine, live, oral Dayne Hoa DO Work Phone: [facility] 10-24-1994 haemophilus influenz ae type b vaccine, conjugate unspecified formulation Dayne Hoa DO Work Phone: [facility] 10-24-1994 measles, mumps and rubella virus vaccine Dayne Hoa DO Work Phone: [facility] 05-17-1994 diphtheria, tetanus toxoids and pertussis vaccine Dayne Hoa DO Work Phone: [facility] 05-17-1994 haemophilus influenz ae type b vaccine, conjugate unspecified formulation Dayne Hoa DO Work Phone: [facility] 01-21-1994 diphtheria, tetanus toxoids and pertussis vaccine Dayne Hoa DO Work Phone: [facility] 01-21-1994 haemophilus influenz ae type b vaccine, conjugate unspecified formulation Dayne Hoa DO Work Phone: [facility] 01-21-1994 hepatitis B vaccine, pediatric or pediatric/adolescent dosage Dayne Hoa DO Work Phone: [facility] 01-21-1994 trivalent poliovirus vaccine, live, oral Dayne Hoa DO Work Phone: [facility] 1993 diphtheria, tetanus toxoids and pertussis vaccine Dayne Hoa DO Work Phone: [facility] 1993 haemophilus influenz ae type b vaccine, conjugate unspecified formulation Dayne Hoa DO Work Phone: [facility] 1993 hepatitis B vaccine, pediatric or pediatric/adolescent dosage Dayne Hoa DO Work Phone: [facility] 1993 trivalent poliovirus vaccine, live, oral Dayne Hoa DO Work Phone: [facility] Payers Date Payer Category Payer Medicaid [employer] [facility] [id number] 2022-Present [address] [address] [place] [address] [id number] 1993 Unknown [id number] 1993 Unknown [id number] [id number] 1993 Unknown [id number] [id number] 1993 Unknown [id number] [id number]5 1993 Unknown [id number] 2.840.1.557190.3.579.2.1258 1993 Unknown [id number] 2.840.1.712907.3.579.2.125 1993 Unknown [id number] 2.840.1.284627.3.579.2.1259 1993 Unknown [id number] 2.840.1.691857.3.579.2.125 1993 Unknown [id number] 2.840.1.270323.3.579.2.1258 1993 Unknown [id number] 2.16840.1.198343.3.579.2.125 1993 Unknown [id number] 2.840.1.102210.3.579.2.125 1993 Unknown [id number] 2.16840.1.158917.3.579.2.1259 1993 Unknown [id number] 2.16840.1.110949.3.579.2.125 1993 Unknown [id number] [id number] 1993 Unknown [id number] [id number] 1993 Unknown [id number] [id number] 1959 Unknown [id number] Social History Date Type Detail Facility Unknown if ever smoked [employer] Other Start: 02-07-2023 End: 06-01-2024 Sex Assigned At [facility] Start: 05-07-2024 Tobacco smoking stat [facility] Ex-smoker [facility] History of tobacco use Current smoker [facility] History of tobacco use Cigarette Smoker [facility] Start: 05-07-2024 Tobacco use and exposure Smokeless tobacco non-user [facility] Start: 05-25-2024 End: 06-08-2024 Alcoholic beverage intake Ex-drinker (finding) [facility] Start: 02-07-2023 End: 06-01-2024 History of Social function [facility] Within the last year , have you been afraid of your partner or ex-partner? No [facility] Are you now , , , , never or living with a partner? Never [facility] How often to you hav e a drink containing alcohol? Monthly or less [facility] How many standard drinks containing alcohol do you have on a typical day? 1 or 2 [facility] How often do you hav e 6 or more drinks on 1 occasion? Never [facility] How hard is it for y ou to pay for the very basics like food, housing, medical care, and heating Not hard at all [facility] Do you feel stress - tense, restless, nervous, or anxious, or unable to sleep at night because your mind is troubled all the time - these days [OSQ] Not at all [facility] (I/We) worried wheth er (my/our) food would run out before (I/we) got money to buy more. Never true [facility] Start: 03-30-2023 Alcohol Comment Caffeine: 1-2 cups/day [facility] Start: 10-01-2023 [facility] Start: 1995 Sex assigned at Not on file [facility] Are you now , , , , never or living with a partner? Living with partner [facility] How hard is it for y ou to pay for the very basics like food, housing, medical care, and heating Not very hard [facility] Do you feel stress - tense, restless, nervous, or anxious, or unable to sleep at night because your mind is troubled all the time - these days [OSQ] Rather much [facility] Start: 06-02-2024 Alcohol Comment Caffeine: 1 cups/day [facility] History of Present illness Narrative 06-08-2024 KIP Bravo - 06/08/2024 10:10 AM EDT Note Date & Type Note Facility 06-08-2024 History of Presen t illness Narrative Reason for Appointment: Patient ID: Tonny Aceves is a 28 y.o. female who presents for Routine Visit Patient presents today for Return OB appointment. MEDICATIONS Current Outpatient Medications Medication Instructions ketoconazole (NIZOral) 2 % shampoo Lather on affected areas 2-3 times a week, leave on 5 min before rinsing ALLERGIES No Known Allergies PROBLEMS Active Ambulatory Problems Diagnosis Date Noted Acquired absence of other organs 02/07/2023 Cigarette nicotine dependence in remission 02/07/2023 Dysmenorrhea 02/07/2023 Obesity (BMI 30.0-34.9) 02/07/2023 Slow transit constipation 02/07/2023 Tinea versicolor 02/07/2023 Resolved Ambulatory Problems Diagnosis Date Noted No Resolved Ambulatory Problems Past Medical History: Diagnosis Date Acute bronchitis Adjustment disorder ([facility]) Anxiety Cervicalgia Cigarette smoker Contraceptive use Cough COVID-19 virus infection Cystitis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
[2024-06-16 05:53] LABS: Hematocrit 37.1 % (36.0-48.0); Hemoglobin 12.2 g/dL (12.0-16.0); Mean Corpuscular HGB Conc 32.9 g/dL (29.9-35.2); Mean Corpuscular Hemoglobin 29.5 pg (26.7-34.0); Mean Corpuscular Volume 89.8 fL (81.0-99.0); Mean Platelet Volume 11.5 fL (9.5-13.5); Platelet Count 170 10^3/uL (150-450); Red Blood Count 4.13 10^6/uL (4.20-5.40); Red Cell Distribution Width 13.8 % (11.0-15.0); White Blood Count 9.1 10^3/uL (4.0-11.0)
[2024-06-16] MEDS: OXYTOCIN/0.9 % SODIUM CHLORIDE 10 UNITS/500 ML PLAST..BAG 6 UNIT IV (06:00)
[2024-06-16] MEDS: 0.9 % SODIUM CHLORIDE 1,000 ML 125 ML IV ×2 (06:00→10:16)
[2024-06-16 06:08] LABS: Amphetamine Screen Urine NEGATIVE (NEGATIVE); Barbiturates Screen Urine NEGATIVE (NEGATIVE); Benzodiazepines Screen Urine NEGATIVE (NEGATIVE); Buprenorphine Screen Urine NEGATIVE (NEGATIVE); Cannabinoid Screen Urine NEGATIVE (NEGATIVE); Cocaine Screen Urine NEGATIVE (NEGATIVE); Methadone Screen Urine NEGATIVE (NEGATIVE); Methamphetamines Screen Urine NEGATIVE (NEGATIVE); Opiate Screen Urine NEGATIVE (NEGATIVE); Oxycodone Screen Urine NEGATIVE (NEGATIVE); Phencyclidine Screen Urine NEGATIVE (NEGATIVE); Tricyclic Antidepressant Urine NEGATIVE (NEGATIVE)
[2024-06-16] MEDS: ROPIVACAINE HCL/PF 400 MG/200 ML PREMIX 6 MG EPIDURAL (10:43)
[2024-06-16] MEDS: OXYTOCIN/0.9 % SODIUM CHLORIDE 20 UNITS/1,000 ML PLAST..BAG 125 UNIT IV (11:45)
--- NOTE | 2024-06-16 11:49 | PM.OBPRCVD ---
Procedure Intrapartal events: None Induction method: per pitocin protocol Delivery augmentation: rupture of membranes and pitocin Delivery monitor: external FHT and external uterine Route of delivery: Episiotomy Description: none L&D Laceration Description: perineal - 1st degree Delivery repair: Vicryl Estimated blood loss (mL): 350 Anesthesia type: Epidural Disposition: floor Infant Delivery date: 06/16/24 Gender: male presentation: vertex Placental delivery description: Spontaneous cord description: 3 Vessels
[2024-06-16] MEDS: ONDANSETRON 4 MG RAPDIS TABLET SL (12:55)
[2024-06-16] MEDS: IBUPROFEN 600 MG TABLET PO ×2 (12:56→21:02)
[2024-06-16] MEDS: CARBOPROST TROMETHAMINE 250 MCG/ML 1 ML VIAL IM (13:09)
[2024-06-17 00:33] VITALS: BP 103/57; PULSE 77
[2024-06-17 06:26] LABS: Basophils Percent Auto 0.3 % (0.2-2.0); Eosinophils Absolute Auto 0.1 10^3/uL (0.0-0.7); Eosinophils Percent Auto 0.8 % (0.9-7.0); Hematocrit 27.8 % (36.0-48.0); Immature Granulocytes Abs Auto 0.08 10^3/uL (0.00-0.03); Immature Granulocytes Pct Auto 0.8 % (0.0-0.5); Lymphocytes Absolute Auto 1.9 10^3/uL (1.2-3.8); Lymphocytes Percent Auto 18.8 % (20.5-60.0); Mean Corpuscular HGB Conc 32.4 g/dL (29.9-35.2); Mean Corpuscular Hemoglobin 29.9 pg (26.7-34.0); Mean Corpuscular Volume 92.4 fL (81.0-99.0); Mean Platelet Volume 11.4 fL (9.5-13.5); Monocytes Absolute Auto 0.8 10^3/uL (0.3-0.8); Monocytes Percent Auto 7.9 % (1.7-12.0); Neutrophils Absolute Auto 7.1 10^3/uL (1.4-6.5); Neutrophils Percent Auto 71.4 % (43.0-75.0); Platelet Count 145 10^3/uL (150-450); Red Blood Count 3.01 10^6/uL (4.20-5.40); Red Cell Distribution Width 14.1 % (11.0-15.0)
--- NOTE | 2024-06-17 07:38 | PM.OBPN ---
OB - PN: Subj Subjective Patient comments: no complaints and pain well controlled [place] status: doing well Exam Constitutional Vital Signs, click to edit/add: Last Vital Signs Temp 99.1 F 06/16/24 21:04 Pulse 77 06/17/24 00:33 Resp 18 06/16/24 14:00 BP 103/57 06/17/24 00:33 O2 Del Method Room Air 06/17/24 00:33 Documenting provider has reviewed patient's vital signs: yes Respiratory Common normals: normal respiratory effort and clear to auscultation bilaterally Cardio Common normals: regular rate and regular rhythm GI Common normals: Normal to inspection, nondistended, normoactive bowel sounds present Extremity Common normals: no clubbing, cyanosis or edema Results Labs Labs: Short CBC 06/17/24 Range/Units 06:05 WBC 10.0 (4.0-11.0) 10^3/uL Hgb 9.0 L (12.0-16.0) g/dL Hct 27.8 L (36.0-48.0) % Plt Count 145 L (150-450) 10^3/uL OB - PN: A/P Plan - Vaginal Delivery day: 1 Plan: routine care, discharge home and follow up 6 weeks Time Spent with Patient Time: Total time spent is greater than 50% in coordination of care (as documented) at patient's floor/unit and/or counseling patient: Total time spent with greater than 50% in coordination of care (as documented) at patient's floor/unit and/or counseling patient: less than 15 minutes
[2024-06-17 08:18] VITALS: BP 102/60; PULSE 76; TEMP 37.4
[2024-06-17] MEDS: IBUPROFEN 600 MG TABLET PO ×3 (08:18→21:10)
--- NOTE | 2024-06-17 10:27 | PC.NURSE ---
1025 Mom up to bathroom, called out drywall professional light. States she felt like she was bleeding a lot. No clots passed, returned to bed. Fundus firm, down 1 below umbilicus. lochia WNL.
[2024-06-17 17:52] VITALS: BP 121/62; PULSE 87; TEMP 37.3
[2024-06-17] MEDS: DOCUSATE SODIUM 100 MG CAPSULE PO (21:10)
[2024-06-17 23:40] VITALS: TEMP 36.8
[2024-06-17 23:41] VITALS: BP 115/70; PULSE 78
--- NOTE | 2024-06-18 07:48 | P.OBPN_ITS ---
OB - PN: Subj Subjective Patient comments: no complaints and pain well controlled [place] status: doing well Exam Constitutional Vital Signs, click to edit/add: Last Vital Signs Temp 98.3 F 06/17/24 23:40 Pulse 78 06/17/24 23:41 Resp 16 06/17/24 16:30 BP 115/70 06/17/24 23:41 O2 Del Method Room Air 06/17/24 23:40 Documenting provider has reviewed patient's vital signs: yes Common normals: no apparent distress Respiratory Common normals: normal respiratory effort and clear to auscultation bilaterally Cardio Common normals: regular rate and regular rhythm GI Common normals: Normal to inspection, nondistended, normoactive bowel sounds present Extremity Common normals: no clubbing, cyanosis or edema and no calf tenderness OB - PN: A/P Plan - Vaginal Delivery day: 2 Plan: routine care, discharge home and follow up 6 weeks Time Spent with Patient Time: Total time spent is greater than 50% in coordination of care (as documented) at patient's floor/unit and/or counseling patient: Total time spent with greater than 50% in coordination of care (as documented) at patient's floor/unit and/or counseling patient: less than 15 minutes
[2024-06-18] MEDS: DOCUSATE SODIUM 100 MG CAPSULE PO (08:33)
[2024-06-18] MEDS: IBUPROFEN 600 MG TABLET PO (08:33)
[2024-06-18 08:35] VITALS: BP 113/65; PULSE 73; TEMP 36.5
== END 2024-06-18 11:10 | disposition home or self-care (01) | DRG 560 ==
PROVIDERS: Admitting Provider Obstetrics & Gynecology; Visit Provider Obstetrics & Gynecology
DX: O70.0 First degree perineal laceration during delivery (principal); Z3A.39 39 weeks gestation of pregnancy; Z37.0 Single live birth; Z87.891 Personal history of nicotine dependence
CPT/HCPCS: 36415; 59050; 59410; 80307; 85025; 85027; 86850; 86900; 86901; J2795; Q0162

== ENCOUNTER 2024-11-23 12:19 | Outpatient (REF) | payer OTHER, SELFPAY | END 2024-11-23 12:20 | disposition home or self-care (01) | LOC: LAB 12:19 | PROVIDERS: Visit Provider Physician Assistant | DX: Z01.419 Encounter for gynecological examination (general) (routine) without abnormal findings (principal) | CPT/HCPCS: 88175 ==